=== PATIENT | female | born 1985 | race Caucasian/White ===

== ENCOUNTER 2016-06-02 15:20 | Inpatient (IN) | payer OTHER ==
[2016-06-02 17:11] VITALS: BMI 35.8
--- NOTE | 2016-06-02 19:25 | HP ---
COWS - Scale Resting Pulse: 1= [place] 81-100 Sweatin= Chills/Flushing Restless Observation: 3= Extraneous Movement Pupil Size: 1= Pupils >than Normal Bone or Joint Aches: 2= Severe Diffuse Aches Runny Nose/ Eye Tearin= Nasal Congestion GI Upset > 30mins: 2= Nausea/Diarrhea Tremor Observation: 2= Slight Tremor Visible Yawning Observation: 2= >3x During Session Anxiety or Irritability: 2=Irritable/Anxious Goose Flesh Skin: 0=Smooth Skin COWS Score: 17 Admission ROS S - [facility] Chief Complaint: WITHDRAWAL SX Allergies/Adverse Reactions: Allergies Allergy/AdvReac Type Severity Reaction Status Date / Time No Known Allergies Allergy Verified 06/02/16 17:48 History of Present Illness: 30 YEARS OLD FEMALE WITH LONG HISTORY OF OPIATE, NICOTINE DEPENDENCE, DENIES MEDICAL ISSUE HAS DEPRESSION IS ADMITTED TO DETOX Exam Limitations: No Limitations - Ebola screening Have you traveled outside of the country in the last 21 days: No Have you had contact with anyone from an Ebola affected area: No Have you been sick,other than usual withdrawal symptoms: No Do you have a fever: No - Review of Systems Constitutional: Chills, Changes in sleep, Weight Stable EENT: reports: No Symptoms Reported Cardiac: reports: No Symptoms Reported GI: reports: Nausea, Poor Fluid Intake, Vomiting, Indigestion, Abdominal cramping : reports: No Symptoms Reported Musculoskeletal: reports: Back Pain, Joint Pain, Muscle Pain, Neck Pain Integumentary: reports: Change in Color (RIGHT HAND) Neuro: reports: Tremors Endocrine: reports: No Symptoms Reported Hematology: reports: No Symptoms Reported Psychiatric: reports: Judgement Intact, Orientated x3, Depressed Other Systems: Reviewed and Negative Patient History - Patient Medical History Hx Anemia: No Hx Asthma: No Hx Chronic Obstructive Pulmonary Disease (COPD): No Hx Cancer: No Hx Cardiac Disorders: No Hx Congestive Heart Failure: No Hx Hypertension: No Hx Hypercholesterolemia: Yes Hx Pacemaker: No HX Cerebrovascular Accident: No Hx Seizures: No Hx Dementia: No Hx Diabetes: No Hx Gastrointestinal Disorders: No Hx Liver Disease: No Hx Genitourinary Disorders: No Hx Sexually Transmitted Disorders: No Hx Renal Disease (ESRD): No Hx Thyroid Disease: No Hx Human Immunodeficiency Virus (HIV): No (negative) Hx Hepatitis C: No Hx Depression: Yes Hx Suicide Attempt: No Hx Bipolar Disorder: No Hx Schizophrenia: No - Patient Surgical History Past Surgical History: No Hx Neurologic Surgery: No Hx Cataract Extraction: No Hx Cardiac Surgery: No Hx Lung Surgery: No Hx Breast Surgery: No Hx Breast Biopsy: No Hx Abdominal Surgery: No Hx Appendectomy: No Hx Cholecystectomy: No Hx Genitourinary Surgery: No Hx Section: No Hx Orthopedic Surgery: No Hx Hysterectomy: No Other Surgical History: FRACTURED RT. ELBOW AND RT. 2 FINGER ON 03/11/2015 SEC. TO FALL - PPD History Previous Implant?: Yes Documented Results: Negative w/proof Implanted On Prior R Admission?: Yes Date: 12/19/15 Results: 0 MM PPD to be Administered?: No - Reproductive History Patient is a Female of Child Bearing Age (11 -55 yrs old): Yes Last Menstrual Period: 05/20/16 Patient : No - Smoking Cessation Smoking history: Current every day smoker Have you smoked in the past 12 months: Yes Aproximately how many cigarettes per day: 10 Cigars Per Day: 0 Hx Chewing Tobacco Use: No Initiated information on smoking cessation: Yes 'Breaking Loose' booklet given: 06/02/16 - Substance & Tx. History Hx Alcohol Use: No Hx Substance Use: Yes Substance Use Type: Marijuana, Opiates Hx Substance Use Treatment: Yes - Substances Abused Heroin Route: Injection Frequency: Daily Amount used: 2-5 BAGS Age of first use: 29 Date of Last Use: 05/31/16 Marijuana/Hashish Route: Smoking Frequency: 3-6 times per week Amount used: 1/2 JOINT Age of first use: 16 Date of Last Use: 06/02/16 Family Disease History - Family Disease History Family Disease History: Heart Disease: Father (gout, marijuana, alcohol, cocaine ), Other: Father, Mother (depression, anxiety) Admission Physical Exam BHS - Vital Signs Vital Signs: Vital Signs - 24 hr 06/02/16 17:08 Temperature 99.5 F Pulse Rate 93 H Respiratory 16 Rate Blood Pressure 120/79 - Physical General Appearance: Yes: Appropriately Dressed, Mild Distress, Moderate Distress , Obese, Tremorous, Irritable, Sweating, Anxious HEENTM: Yes: Hearing grossly Normal, Normal ENT Inspection, Normocephalic, Normal Voice Respiratory: Yes: Chest Non-Tender, Lungs Clear, Normal Breath Sounds, No Respiratory Distress, No Accessory Muscle Use Neck: Yes: Supple, Trachea in good position Breast: Yes: Breasts Symetrical Cardiology: Yes: Regular Rhythm, Regular Rate, S1, S2 Abdominal: Yes: Non Tender, Soft, Increased Bowel Sounds Genitourinary: Yes: Within Normal Limits Back: Yes: Normal Inspection Musculoskeletal: Yes: full range of Motion, Gait Steady, Back pain, Muscle Pain Extremities: Yes: Normal Range of Motion, Non-Tender, Tremors, Other (HANDS IV OPIATE) Neurological: Yes: Fully Oriented, Alert, Motor Strength 5/5, Normal Response, Depressed Affect Integumentary: Yes: Warm, Moist, Track [place] Lymphatic: Yes: Within Normal Limits - Diagnostic (1) Depression Current Visit: Yes Status: Suspected Qualifiers: Depression Type: dysthymia Qualified Code(s): F34.1 - Dysthymic disorder (2) GERD (gastroesophageal reflux disease) Current Visit: Yes Status: Acute Qualifiers: Esophagitis presence: without esophagitis Qualified Code(s): K21.9 - Gastro-esophageal reflux disease without esophagitis (3) Nicotine dependence Current Visit: Yes Status: Acute Qualifiers: Nicotine product type: cigarettes Substance use status: in withdrawal Qualified Code(s): F17.213 - Nicotine dependence, cigarettes, with withdrawal (4) Opioid dependence with withdrawal Current Visit: Yes Status: Acute (5) Chronic back pain Current Visit: Yes Status: Chronic Qualifiers: Back pain location: low back pain Back pain laterality: midline Sciatica presence: without sciatica Qualified Code(s): M54.5 - Low back pain; G89.29 - Other chronic pain Cleared for Admission [facility] - Detox or Rehab [facility] Level of Care: Medically Managed Detox Regimen/Protocol: Methadone [facility] Breath Alcohol Content Breath Alcohol Content: 0 Urine Pregancy Test - Result Urine Test Results: Negative- NO Line Present Urine Drug Screen - Results Drug Screen Negative: No Urine Drug Screen Results: THC-Marijuana, OPI-Opiates, TCA-Tricyclic Antidepress , OXY-Oxycodone
[2016-06-02] MEDS ORDERED: P-EPHED 60MG/TRIPROLIDI 2.5MG TABLET PO PRN (19:27)
[2016-06-02] MEDS ORDERED: guaiFENesin/D-METHORPHAN HB 10 ML UNIT-DOSE CUPS PO PRN (19:27)
[2016-06-02] MEDS ORDERED: MAG HYDROX/AL HYDROX/SIMETH 30 ML UNIT-DOSE CUP PO PRN (19:27)
[2016-06-02] MEDS ORDERED: MAGNESIUM HYDROX 2400MG/30ML ORAL SUSPENSION 30 ML CUP PO PRN (19:27)
[2016-06-02] MEDS ORDERED: METHADONE HCL 10 MG TABLET (FOR DETOX USE ONLY) PO ONE ×2 (19:27→23:00)
[2016-06-02] MEDS ORDERED: diphenhydrAMINE HCL 50 MG CAPSULE PO PRN (19:27)
[2016-06-02] MEDS ORDERED: MENTHOL/PHENOL 1 EACH UD MM PRN (19:27)
[2016-06-02] MEDS ORDERED: MAGNESIUM CITRATE 300 ML BOTTLE PO PRN (19:27)
[2016-06-02] MEDS ORDERED: NICOTINE POLACRILEX 2 MG GUM BC PRN (19:27)
[2016-06-02] MEDS ORDERED: LOPERAMIDE HCL 2 MG CAPSULE PO PRN (19:27)
[2016-06-02] MEDS: diazePAM 5 MG TABLET PO PRN (20:36)
[2016-06-02] MEDS: RANITIDINE HCL 150 MG TABLET (FP) PO SCH (22:27)
[2016-06-02] MEDS: THIAMINE HCL 100 MG TABLET (FP) PO SCH (22:27)
[2016-06-02] MEDS: CYCLOBENZAPRINE HCL 10 MG TABLET (FP) PO PRN (22:28)
[2016-06-02 23:16] LABS: URINE APPEARANCE CLEAR; URINE BILIRUBIN NEGATIVE (NEGATIVE); URINE BLOOD NEGATIVE (NEGATIVE); URINE COLOR LTYELLOW; URINE GLUCOSE (UA) NEGATIVE (NEGATIVE); URINE KETONE NEGATIVE (NEGATIVE); URINE LEUK ESTERASE NEGATIVE (NEGATIVE); URINE NITRITE NEGATIVE (NEGATIVE); URINE PROTEIN NEGATIVE (NEGATIVE); URINE UROBILINOGEN NEGATIVE E.U./dl (0.2-1.0)
[2016-06-02] MEDS: cloNIDine HCL 0.1 MG TABLET PO PRN (23:38)
[2016-06-02] MEDS: ACETAMINOPHEN 325 MG TABLET (FP) PO PRN (23:38)
[2016-06-03] MEDS: CYCLOBENZAPRINE HCL 10 MG TABLET (FP) PO PRN ×2 (07:04→22:52)
[2016-06-03] MEDS: diazePAM 5 MG TABLET PO PRN ×3 (07:04→16:46)
--- NOTE | 2016-06-03 08:38 | CONSULT ---
[facility] Psychiatric Consult - Data Date of interview: 06/03/16 Admission source: [facility] Identifying data: This is 30 years old female with psychiatric hospitalization history intoxicated with: Opioids, Cannabus, Xanax and Nicotine Substance Abuse History: - Smoking Cessation. Smoking history: Current every day smoker. Have you smoked in the past 12 months: Yes. Aproximately how many cigarettes per day: 10. Cigars Per Day: 0. Hx Chewing Tobacco Use: No. Initiated information on smoking cessation: Yes. 'Breaking Loose' booklet given : 06/02/16. - Substance & Tx. History. Hx Alcohol Use: No. Hx Substance Use: Yes. Substance Use Type: Marijuana, Opiates. Hx Substance Use Treatment: Yes. - Substances Abused. Heroin. Route: Injection. Frequency: Daily. Amount used: 2-5 BAGS. Age of first use: 29. Date of Last Use: 05/31/16. Marijuana/Hashish. Route: Smoking. Frequency: 3-6 times per week. Amount used : 1/2 JOINT. Age of first use: 16. Date of Last Use: 06/02/16 Medical History: GERD, LBP, Cellulitis history Psychiatric History: Patient reports to carry Bipolar disorder, MDD with most recent psychiatric hospitalization opn 2014 at [facility] due to depressive condition, denies suicidal history, reports currently stable on: Zoloft 200mg po qhs. Seroquel 400mg po qhs Physical/Sexual Abuse/Trauma History: Denies, unclear Additional Comment: Zoloft 200mg po qhs. Seroquel 400mg po qhs Mental Status Exam - Mental Status Exam Alert and Oriented to: Person Cognitive Function: Fair Patient Appearance: Unkempt Mood: Sad Affect: Mood Congruent Patient Behavior: Cooperative Speech Pattern: Appropriate Voice Loudness: Mildly Soft/Quiet Thought Process: Circumstantial, Goal Oriented Thought Disorder: Being Controlled Hallucinations: Denies Suicidal Ideation: Denies Homicidal Ideation: Denies Insight/Judgement: Fair Sleep: Difficulty falling asleep Appetite: Fair Muscle strength/Tone: Normal Gait/Station: Shuffling Additional Comments: Zoloft 200mg po qhs. Seroquel 400mg po qhs Psychiatric Findings - Problem List ([place] 1, 2,3) (1) Nicotine dependence Current Visit: Yes Status: Acute Qualifiers: Nicotine product type: cigarettes Substance use status: in withdrawal Qualified Code(s): F17.213 - Nicotine dependence, cigarettes, with withdrawal (2) Opioid dependence with withdrawal Current Visit: Yes Status: Acute (3) Depression Current Visit: Yes Status: Suspected Qualifiers: Depression Type: dysthymia Qualified Code(s): F34.1 - Dysthymic disorder (4) Bipolar I disorder Current Visit: No Status: Acute (5) Psychoactive substance-induced mood disorder Current Visit: No Status: Acute Qualifiers: Causal substance: opioid-induced Qualified Code(s): F11.94 - Opioid use, unspecified with opioid-induced mood disorder (6) Benzodiazepine dependence Current Visit: No Status: Chronic (7) MDD (major depressive disorder), recurrent episode, moderate Current Visit: No Status: Chronic (8) Personality disorder, unspecified Current Visit: No Status: Chronic (9) Substance induced mood disorder Current Visit: No Status: Chronic - Initial Treatment Plan Initial Treatment Plan: Zoloft 200mg po qhs. Seroquel 400mg po qhs
[2016-06-03 09:56] LABS: MCH 30.2 pg (25.7-33.7); MCHC 33.8 g/dl (32.0-36.0); MEAN CELL VOLUME 89.4 fl (80-96); MEAN PLT VOLUME 8.9 fl (7.5-11.1); PLATELET COUNT 163 K/MM3 (134-434); WHITE BLOOD COUNT 6.9 K/mm3 (4.0-10.0)
[2016-06-03] MEDS ORDERED: METHADONE HCL 10 MG TABLET (FOR DETOX USE ONLY) PO ONE (10:00)
[2016-06-03 10:17] LABS: ALBUMIN 3.6 g/dl (3.4-5.0); ANION GAP 8 (8-16); CALCIUM 8.5 mg/dL (8.5-10.1); CO2 28 mmol/L (21-32); CREATININE 0.9 mg/dL (0.55-1.02); GLUCOSE,RANDOM 87 mg/dL (74-106); SGOT/AST 18 U/L (15-37); SGPT/ALT 35 U/L (12-78)
[2016-06-03 10:19] LABS: ALK PHOS 75 U/L (45-117); BILIRUBIN,TOTAL 0.4 mg/dL (0.2-1.0); TOT PROT 6.8 g/dl (6.4-8.2)
[2016-06-03] MEDS: PRENATAL VITAMINS W/ FOLIC ACID TABLET (FP) PO SCH (10:23)
[2016-06-03] MEDS: NICOTINE 14 MG/24 HOURS TOPICAL PATCH TD SCH (10:24)
[2016-06-03] MEDS: cloNIDine HCL 0.1 MG TABLET PO PRN (10:24)
[2016-06-03] MEDS: RANITIDINE HCL 150 MG TABLET (FP) PO SCH ×2 (10:24→22:51)
--- NOTE | 2016-06-03 10:45 | PN ---
BHS COWS - Scale Resting Pulse: 1= [place] 81-100 Sweatin=Flushed/Facial Moisture Restless Observation: 1= Difficult to Sit Still Pupil Size: 0= Normal to Room Light Bone or Joint Aches: 2= Severe Diffuse Aches Runny Nose/ Eye Tearin= Nasal Congestion GI Upset > 30mins: 2= Nausea/Diarrhea Tremor Observation of Outstretched Hands: 2= Slight Tremor Visible Yawning Observation: 2= >3x During Session Anxiety or Irritability: 2=Irritable/Anxious Goose Flesh Skin: 0=Smooth Skin COWS Score: 15 BHS Progress Note (SOAP) Subjective: shakes sweats interrupted sleep body aches Objective: 06/03/16 10:42 Vital Signs Temperature 98.2 F 06/03/16 09:44 Pulse Rate 74 06/03/16 09:44 Respiratory Rate 20 06/03/16 09:44 Blood Pressure 139/60 06/03/16 09:44 O2 Sat by Pulse Oximetry (%) Laboratory Tests 06/02/16 06/03/16 06/03/16 19:50 07:20 07:20 WBC 6.9 RBC 4.79 Hgb 14.5 Hct 42.8 MCV 89.4 MCHC 33.8 RDW 13.0 Plt Count 163 MPV 8.9 Sodium 142 Potassium 4.1 D Chloride 106 Carbon Dioxide 28 Anion Gap 8 BUN 19 H D Creatinine 0.9 Creat Clearance w eGFR > 60 Random Glucose 87 Calcium 8.5 Total Bilirubin 0.4 AST 18 D ALT 35 D Alkaline Phosphatase 75 D Total Protein 6.8 Albumin 3.6 Urine Color Ltyellow Urine Appearance Clear Urine pH 7.0 D Ur Specific [place] 1.017 Urine Protein Negative Urine Glucose (UA) Negative Urine Ketones Negative Urine Blood Negative Urine Nitrite Negative Urine Bilirubin Negative Urine Urobilinogen Negative Ur Leukocyte Esterase Negative awake/alert ambulating no acute distress Assessment: 06/03/16 10:45 withdrawal sx Plan: continue detox increase fluids lidocaine patch motrin 800mg prn
[2016-06-03] MEDS ORDERED: LIDOCAINE 5% TOPICAL PATCH TP ONE (11:16)
[2016-06-03 12:11] LABS: HIV 1 & 2 AB NEGATIVE; HIV 1 AGp24 NEGATIVE
--- NOTE | 2016-06-03 15:04 | EKG ---
Test Reason : Blood Pressure : / mmHG Vent. Rate : 073 BPM Atrial Rate : 073 BPM P-R Int : 138 ms QRS Dur : 084 ms QT Int : 426 ms P-R-T Axes : 032 009 030 degrees QTc Int : 469 ms NORMAL SINUS RHYTHM POSSIBLE LEFT ATRIAL ENLARGEMENT BORDERLINE ECG NO PREVIOUS ECGS AVAILABLE Confirmed by JOYCELYN CLARK, STEPHANIE ([id number]) on 06/03/2016 3:04:29 PM Referred By: Confirmed By:STEPHANIE HIRSCH MD
[2016-06-03] MEDS: QUEtiapine FUMARATE 400 MG TABLET PO SCH (22:51)
[2016-06-03] MEDS: THIAMINE HCL 100 MG TABLET (FP) PO SCH (22:51)
[2016-06-03] MEDS: SERTRALINE HCL 50 MG TABLET (FP) PO SCH (22:51)
[2016-06-04] MEDS: diazePAM 5 MG TABLET PO PRN ×3 (08:35→17:44)
--- NOTE | 2016-06-04 09:30 | PN ---
BHS COWS - Scale Resting Pulse: 0= [place] 80 or Below Sweatin=Flushed/Facial Moisture Restless Observation: 3= Extraneous Movement Pupil Size: 2= Moderately Dilated Bone or Joint Aches: 2= Severe Diffuse Aches Runny Nose/ Eye Tearin= Runny Nose/Eyes GI Upset > 30mins: 2= Nausea/Diarrhea Tremor Observation of Outstretched Hands: 2= Slight Tremor Visible Yawning Observation: 1= 1-2x During Session Anxiety or Irritability: 2=Irritable/Anxious Goose Flesh Skin: 0=Smooth Skin COWS Score: 18 BHS Progress Note (SOAP) Subjective: ALERT,IRRITABLE,ANXIOUS,INTERRUPTED SLEEP,PAIN IN THE BODY AND BACK Objective: 06/04/16 09:29 Vital Signs Temperature 98 F 06/04/16 06:33 Pulse Rate 82 06/04/16 06:33 Respiratory Rate 18 06/04/16 06:33 Blood Pressure 136/84 06/04/16 06:33 O2 Sat by Pulse Oximetry (%) Laboratory Last Values WBC 6.9 K/mm3 (4.0-10.0) 06/03/16 07:20 RBC 4.79 M/mm3 (3.60-5.2) 06/03/16 07:20 Hgb 14.5 GM/dL (10.7-15.3) 06/03/16 07:20 Hct 42.8 % (32.4-45.2) 06/03/16 07:20 MCV 89.4 fl (80-96) 06/03/16 07:20 MCHC 33.8 g/dl (32.0-36.0) 06/03/16 07:20 RDW 13.0 % (11.6-15.6) 06/03/16 07:20 Plt Count 163 K/MM3 (134-434) 06/03/16 07:20 MPV 8.9 fl (7.5-11.1) 06/03/16 07:20 Sodium 142 mmol/L (136-145) 06/03/16 07:20 Potassium 4.1 mmol/L (3.5-5.1) D 06/03/16 07:20 Chloride 106 mmol/L (98-107) 06/03/16 07:20 Carbon Dioxide 28 mmol/L (21-32) 06/03/16 07:20 Anion Gap 8 (8-16) 06/03/16 07:20 BUN 19 mg/dL (7-18) H D 06/03/16 07:20 Creatinine 0.9 mg/dL (0.55-1.02) 06/03/16 07:20 Creat Clearance w eGFR > 60 (>60) 06/03/16 07:20 Random Glucose 87 mg/dL (74-106) 06/03/16 07:20 Calcium 8.5 mg/dL (8.5-10.1) 06/03/16 07:20 Total Bilirubin 0.4 mg/dL (0.2-1.0) 06/03/16 07:20 AST 18 U/L (15-37) D 06/03/16 07:20 ALT 35 U/L (12-78) D 06/03/16 07:20 Alkaline Phosphatase 75 U/L (45-117) D 06/03/16 07:20 Total Protein 6.8 g/dl (6.4-8.2) 06/03/16 07:20 Albumin 3.6 g/dl (3.4-5.0) 06/03/16 07:20 Urine Color Ltyellow 06/02/16 19:50 Urine Appearance Clear 06/02/16 19:50 Urine pH 7.0 (5.0-8.0) D 06/02/16 19:50 Ur Specific [place] 1.017 (1.001-1.035) 06/02/16 19:50 Urine Protein Negative (NEGATIVE) 06/02/16 19:50 Urine Glucose (UA) Negative (NEGATIVE) 06/02/16 19:50 Urine Ketones Negative (NEGATIVE) 06/02/16 19:50 Urine Blood Negative (NEGATIVE) 06/02/16 19:50 Urine Nitrite Negative (NEGATIVE) 06/02/16 19:50 Urine Bilirubin Negative (NEGATIVE) 06/02/16 19:50 Urine Urobilinogen Negative E.U./dl (0.2-1.0) 06/02/16 19:50 Ur Leukocyte Esterase Negative (NEGATIVE) 06/02/16 19:50 RPR Titer Nonreactive (NONREACTIVE) 06/03/16 07:20 Hepatitis C Antibody <0.1 s/co ratio (0.0-0.9) 06/03/16 07:20 HIV 1&2 Antibody Screen Negative 06/03/16 07:20 HIV P24 Antigen Negative 06/03/16 07:20 Assessment: 06/04/16 09:30 WITHDRAWAL SYMPTOM Plan: CONTINUE DETOX
[2016-06-04] MEDS ORDERED: METHADONE HCL 5 MG TABLET (FOR DETOX USE ONLY) PO ONE (10:00)
[2016-06-04] MEDS: LIDOCAINE 5% TOPICAL PATCH TP SCH (10:23)
[2016-06-04] MEDS: NICOTINE 14 MG/24 HOURS TOPICAL PATCH TD SCH (10:24)
[2016-06-04] MEDS: PRENATAL VITAMINS W/ FOLIC ACID TABLET (FP) PO SCH (10:26)
[2016-06-04] MEDS: RANITIDINE HCL 150 MG TABLET (FP) PO SCH ×2 (10:27→22:40)
[2016-06-04] MEDS: ACETAMINOPHEN 325 MG TABLET (FP) PO PRN (10:28)
[2016-06-04] MEDS: CYCLOBENZAPRINE HCL 10 MG TABLET (FP) PO PRN ×2 (10:30→18:53)
[2016-06-04] MEDS: QUEtiapine FUMARATE 400 MG TABLET PO SCH (22:40)
[2016-06-04] MEDS: THIAMINE HCL 100 MG TABLET (FP) PO SCH (22:40)
[2016-06-04] MEDS: SERTRALINE HCL 50 MG TABLET (FP) PO SCH (22:40)
[2016-06-05] MEDS: diazePAM 5 MG TABLET PO PRN ×3 (07:12→18:12)
[2016-06-05] MEDS ORDERED: METHADONE HCL 5 MG TABLET (FOR DETOX USE ONLY) PO ONE (10:00)
[2016-06-05] MEDS: PRENATAL VITAMINS W/ FOLIC ACID TABLET (FP) PO SCH (10:33)
[2016-06-05] MEDS: LIDOCAINE 5% TOPICAL PATCH TP SCH (10:33)
[2016-06-05] MEDS: RANITIDINE HCL 150 MG TABLET (FP) PO SCH ×2 (10:33→22:20)
[2016-06-05] MEDS: NICOTINE 14 MG/24 HOURS TOPICAL PATCH TD SCH (10:36)
[2016-06-05] MEDS: CYCLOBENZAPRINE HCL 10 MG TABLET (FP) PO PRN (10:36)
--- NOTE | 2016-06-05 11:35 | PN ---
BHS Progress Note (SOAP) Subjective: restlessness Objective: 06/05/16 11:33 withdrawal sx Vital Signs - 8 hr 06/05/16 06/05/16 06:00 11:07 Temperature 97.1 F L 97.9 F Pulse Rate 61 83 Respiratory 18 18 Rate Blood Pressure 95/55 101/62 Laboratory Last Values WBC 6.9 K/mm3 (4.0-10.0) 06/03/16 07:20 RBC 4.79 M/mm3 (3.60-5.2) 06/03/16 07:20 Hgb 14.5 GM/dL (10.7-15.3) 06/03/16 07:20 Hct 42.8 % (32.4-45.2) 06/03/16 07:20 MCV 89.4 fl (80-96) 06/03/16 07:20 MCHC 33.8 g/dl (32.0-36.0) 06/03/16 07:20 RDW 13.0 % (11.6-15.6) 06/03/16 07:20 Plt Count 163 K/MM3 (134-434) 06/03/16 07:20 MPV 8.9 fl (7.5-11.1) 06/03/16 07:20 Sodium 142 mmol/L (136-145) 06/03/16 07:20 Potassium 4.1 mmol/L (3.5-5.1) D 06/03/16 07:20 Chloride 106 mmol/L (98-107) 06/03/16 07:20 Carbon Dioxide 28 mmol/L (21-32) 06/03/16 07:20 Anion Gap 8 (8-16) 06/03/16 07:20 BUN 19 mg/dL (7-18) H D 06/03/16 07:20 Creatinine 0.9 mg/dL (0.55-1.02) 06/03/16 07:20 Creat Clearance w eGFR > 60 (>60) 06/03/16 07:20 Random Glucose 87 mg/dL (74-106) 06/03/16 07:20 Calcium 8.5 mg/dL (8.5-10.1) 06/03/16 07:20 Total Bilirubin 0.4 mg/dL (0.2-1.0) 06/03/16 07:20 AST 18 U/L (15-37) D 06/03/16 07:20 ALT 35 U/L (12-78) D 06/03/16 07:20 Alkaline Phosphatase 75 U/L (45-117) D 06/03/16 07:20 Total Protein 6.8 g/dl (6.4-8.2) 06/03/16 07:20 Albumin 3.6 g/dl (3.4-5.0) 06/03/16 07:20 Urine Color Ltyellow 06/02/16 19:50 Urine Appearance Clear 06/02/16 19:50 Urine pH 7.0 (5.0-8.0) D 06/02/16 19:50 Ur Specific [place] 1.017 (1.001-1.035) 06/02/16 19:50 Urine Protein Negative (NEGATIVE) 06/02/16 19:50 Urine Glucose (UA) Negative (NEGATIVE) 06/02/16 19:50 Urine Ketones Negative (NEGATIVE) 06/02/16 19:50 Urine Blood Negative (NEGATIVE) 06/02/16 19:50 Urine Nitrite Negative (NEGATIVE) 06/02/16 19:50 Urine Bilirubin Negative (NEGATIVE) 06/02/16 19:50 Urine Urobilinogen Negative E.U./dl (0.2-1.0) 06/02/16 19:50 Ur Leukocyte Esterase Negative (NEGATIVE) 06/02/16 19:50 RPR Titer Nonreactive (NONREACTIVE) 06/03/16 07:20 Hepatitis C Antibody <0.1 s/co ratio (0.0-0.9) 06/03/16 07:20 HIV 1&2 Antibody Screen Negative 06/03/16 07:20 HIV P24 Antigen Negative 06/03/16 07:20 labs noted Assessment: 06/05/16 11:34 withdrawal sx Plan: continue detox
[2016-06-05] MEDS: QUEtiapine FUMARATE 400 MG TABLET PO SCH (22:20)
[2016-06-05] MEDS: SERTRALINE HCL 50 MG TABLET (FP) PO SCH (22:20)
[2016-06-05] MEDS: THIAMINE HCL 100 MG TABLET (FP) PO SCH (22:21)
[2016-06-06] MEDS: ACETAMINOPHEN 325 MG TABLET (FP) PO PRN (08:51)
[2016-06-06] MEDS ORDERED: METHADONE HCL 10 MG TABLET (FOR DETOX USE ONLY) PO ONE (10:00)
[2016-06-06 10:09] VITALS: BP 128/79; PULSE 95; TEMP 97.9
[2016-06-06] MEDS: PRENATAL VITAMINS W/ FOLIC ACID TABLET (FP) PO SCH (10:21)
[2016-06-06] MEDS: RANITIDINE HCL 150 MG TABLET (FP) PO SCH (10:21)
[2016-06-06] MEDS: LIDOCAINE 5% TOPICAL PATCH TP SCH (10:22)
[2016-06-06] MEDS: NICOTINE 14 MG/24 HOURS TOPICAL PATCH TD SCH (10:22)
--- NOTE | 2016-06-06 10:44 | DS ---
[facility] Detox Discharge Summary Admission Date: 06/02/16 Discharge Date: 06/06/16 - History Present History: Opioid Dependence, Sedative Dependence Pertinent Past History: Hyperlipdemia - Physical Exam Results Vital Signs: Vital Signs Temperature 97.9 F 06/06/16 10:00 Pulse Rate 95 H 06/06/16 10:00 Respiratory Rate 18 06/06/16 10:00 Blood Pressure 128/79 06/06/16 10:00 O2 Sat by Pulse Oximetry (%) Laboratory Last Values WBC 6.9 K/mm3 (4.0-10.0) 06/03/16 07:20 RBC 4.79 M/mm3 (3.60-5.2) 06/03/16 07:20 Hgb 14.5 GM/dL (10.7-15.3) 06/03/16 07:20 Hct 42.8 % (32.4-45.2) 06/03/16 07:20 MCV 89.4 fl (80-96) 06/03/16 07:20 MCHC 33.8 g/dl (32.0-36.0) 06/03/16 07:20 RDW 13.0 % (11.6-15.6) 06/03/16 07:20 Plt Count 163 K/MM3 (134-434) 06/03/16 07:20 MPV 8.9 fl (7.5-11.1) 06/03/16 07:20 Sodium 142 mmol/L (136-145) 06/03/16 07:20 Potassium 4.1 mmol/L (3.5-5.1) D 06/03/16 07:20 Chloride 106 mmol/L (98-107) 06/03/16 07:20 Carbon Dioxide 28 mmol/L (21-32) 06/03/16 07:20 Anion Gap 8 (8-16) 06/03/16 07:20 BUN 19 mg/dL (7-18) H D 06/03/16 07:20 Creatinine 0.9 mg/dL (0.55-1.02) 06/03/16 07:20 Creat Clearance w eGFR > 60 (>60) 06/03/16 07:20 Random Glucose 87 mg/dL (74-106) 06/03/16 07:20 Calcium 8.5 mg/dL (8.5-10.1) 06/03/16 07:20 Total Bilirubin 0.4 mg/dL (0.2-1.0) 06/03/16 07:20 AST 18 U/L (15-37) D 06/03/16 07:20 ALT 35 U/L (12-78) D 06/03/16 07:20 Alkaline Phosphatase 75 U/L (45-117) D 06/03/16 07:20 Total Protein 6.8 g/dl (6.4-8.2) 06/03/16 07:20 Albumin 3.6 g/dl (3.4-5.0) 06/03/16 07:20 Urine Color Ltyellow 06/02/16 19:50 Urine Appearance Clear 06/02/16 19:50 Urine pH 7.0 (5.0-8.0) D 06/02/16 19:50 Ur Specific [place] 1.017 (1.001-1.035) 06/02/16 19:50 Urine Protein Negative (NEGATIVE) 06/02/16 19:50 Urine Glucose (UA) Negative (NEGATIVE) 06/02/16 19:50 Urine Ketones Negative (NEGATIVE) 06/02/16 19:50 Urine Blood Negative (NEGATIVE) 06/02/16 19:50 Urine Nitrite Negative (NEGATIVE) 06/02/16 19:50 Urine Bilirubin Negative (NEGATIVE) 06/02/16 19:50 Urine Urobilinogen Negative E.U./dl (0.2-1.0) 06/02/16 19:50 Ur Leukocyte Esterase Negative (NEGATIVE) 06/02/16 19:50 RPR Titer Nonreactive (NONREACTIVE) 06/03/16 07:20 Hepatitis C Antibody <0.1 s/co ratio (0.0-0.9) 06/03/16 07:20 HIV 1&2 Antibody Screen Negative 06/03/16 07:20 HIV P24 Antigen Negative 06/03/16 07:20 Labs noted Pertinent Admission Physical Exam Findings: Withdrawal Symptoms - Treatment Hospital Course: Detox Protocol Followed, Detoxed Safely, Responded well, Discharged Condition Good - Medication Discharge Medications: Ambulatory Orders Sertraline HCl [Zoloft] 200 mg PO DAILY #60 tablet 01/05/16 Clonazepam [Klonopin] 1 mg PO BID 06/02/16 Quetiapine Fumarate [Seroquel -] 400 mg PO HS 06/02/16 Quetiapine Fumarate [Seroquel -] 400 mg PO HS #30 tab 06/03/16 Sertraline HCl [Zoloft -] 200 mg PO HS #30 tablet 06/03/16 - Diagnosis (1) GERD (gastroesophageal reflux disease) Current Visit: Yes Status: Acute Qualifiers: Esophagitis presence: without esophagitis Qualified Code(s): K21.9 - Gastro-esophageal reflux disease without esophagitis (2) Nicotine dependence Current Visit: Yes Status: Acute Qualifiers: Nicotine product type: cigarettes Substance use status: in withdrawal Qualified Code(s): F17.213 - Nicotine dependence, cigarettes, with withdrawal (3) Opioid dependence with withdrawal Current Visit: Yes Status: Acute (4) Depression Current Visit: Yes Status: Suspected Qualifiers: Depression Type: dysthymia Qualified Code(s): F34.1 - Dysthymic disorder (5) Bipolar I disorder Current Visit: No Status: Acute (6) Psychoactive substance-induced mood disorder Current Visit: No Status: Acute Qualifiers: Causal substance: opioid-induced Qualified Code(s): F11.94 - Opioid use, unspecified with opioid-induced mood disorder (7) Benzodiazepine dependence Current Visit: No Status: Chronic (8) Cannabis dependence Current Visit: No Status: Chronic (9) MDD (major depressive disorder), recurrent episode, moderate Current Visit: No Status: Chronic (10) Opiate dependence Current Visit: No Status: Chronic Qualifiers: Substance use status: uncomplicated Qualified Code(s): F11.20 - Opioid dependence, uncomplicated (11) Personality disorder, unspecified Current Visit: No Status: Chronic (12) Substance induced mood disorder Current Visit: No Status: Chronic (13) Anxiety Current Visit: No Status: Suspected - AMA Did Patient Leave Against Medical Advice: No (Patient is medcially stable, has appointment with [facility] on 06/07 at 9 am)
[2016-06-07] MEDS ORDERED: METHADONE HCL 5 MG TABLET (FOR DETOX USE ONLY) PO ONE (06:00)
== END 2016-06-06 13:05 | disposition home or self-care (01) | DRG 773 ==
LOC: YASAS 15:20 → Y6N 19:14
PROVIDERS: ADMIT Internal Medicine Addiction Medicine; ATTEND Internal Medicine Addiction Medicine
PROC: HZ2ZZZZ Detoxification Services for Substance Abuse Treatment (ICD-10-PCS; principal; 2016-06-06)
DX: F11.23 Opioid dependence with withdrawal (principal); F13.20 Sedative, hypnotic or anxiolytic dependence, uncomplicated; F12.20 Cannabis dependence, uncomplicated; F17.213 Nicotine dependence, cigarettes, with withdrawal; F11.94 Opioid use, unspecified with opioid-induced mood disorder; F60.9 Personality disorder, unspecified; F34.1 Dysthymic disorder; F31.89 Other bipolar disorder; M54.5 Low back pain; G89.29 Other chronic pain
CPT/HCPCS: 36415; 80053; 81003; 85027; 86593; 87389; 93005; 93010

== ENCOUNTER 2016-11-27 11:59 | Inpatient (IN) | payer OTHER ==
[2016-11-27 12:14] VITALS: BMI 32.0
--- NOTE | 2016-11-27 17:50 | HP ---
CIWA Score - CIWA Score Nausea/Vomitin Muscle Tremors: 3 Anxiety: 3 Agitation: 3 Paroxysmal Sweats: 2 Orientation: 0-Oriented Tacttile Disturbances: 2-Mild Itch/Numbness/Burn Auditory Disturbances: 2-Mild Harshness/Frighten Visual Disturbances: 2-Mild Sensitivity Headache: 2-Mild CIWA-Ar Total Score: 22 Admission ROS BHS - HPI Chief Complaint: i need help to stop using klonopin,sent in by my doctor for detox Allergies/Adverse Reactions: Allergies Allergy/AdvReac Type Severity Reaction Status Date / Time No Known Allergies Allergy Verified 06/02/16 17:48 History of Present Illness: this 31 years 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,seking detox,sent in by her pmd for detox, - Ebola screening Have you traveled outside of the country in the last 21 days: No Have you had contact with anyone from an Ebola affected area: No Have you been sick,other than usual withdrawal symptoms: No Do you have a fever: No Patient History - Patient Medical History Hx Anemia: No Hx Asthma: No Hx Chronic Obstructive Pulmonary Disease (COPD): No Hx Cancer: No Hx Cardiac Disorders: No Hx Congestive Heart Failure: No Hx Hypertension: No Hx Hypercholesterolemia: Yes Hx Pacemaker: No HX Cerebrovascular Accident: No Hx Seizures: No Hx Dementia: No Hx Diabetes: No Hx Gastrointestinal Disorders: No Hx Liver Disease: No Hx Genitourinary Disorders: No Hx Sexually Transmitted Disorders: No Hx Renal Disease (ESRD): No Hx Thyroid Disease: No Hx Human Immunodeficiency Virus (HIV): No (negative) Hx Hepatitis C: No Hx Depression: Yes Hx Suicide Attempt: No Hx Bipolar Disorder: No Hx Schizophrenia: No - Patient Surgical History Past Surgical History: No Hx Neurologic Surgery: No Hx Cataract Extraction: No Hx Cardiac Surgery: No Hx Lung Surgery: No Hx Breast Surgery: No Hx Breast Biopsy: No Hx Abdominal Surgery: No Hx Appendectomy: No Hx Cholecystectomy: No Hx Genitourinary Surgery: No Hx Section: No Hx Orthopedic Surgery: No Hx Hysterectomy: No Other Surgical History: FRACTURED RT. ELBOW AND RT. 2 FINGER ON 03/11/2015 SEC. TO FALL Anesthesia Reaction: No - PPD History Date: 12/19/15 Results: 0 MM - Reproductive History Last Menstrual Period: 05/20/16 - Smoking Cessation Smoking history: Current every day smoker Have you smoked in the past 12 months: Yes Aproximately how many cigarettes per day: 10 Cigars Per Day: 0 Hx Chewing Tobacco Use: No Family Disease History - Family Disease History Family Disease History: Heart Disease: Father (gout, marijuana, alcohol, cocaine ), Other: Father, Mother (depression, anxiety) Admission Physical Exam BHS - Vital Signs Vital Signs: Vital Signs - 24 hr 11/27/16 12:11 Temperature 98.8 F Pulse Rate 90 Respiratory 18 Rate Blood Pressure 118/83 BHS Breath Alcohol Content Breath Alcohol Content: 0 Urine Pregancy Test - Result Urine Test Results: Negative- NO Line Present Urine Drug Screen - Results Drug Screen Negative: No Urine Drug Screen Results: OPI-Opiates, TCA-Tricyclic Antidepress
--- NOTE | 2016-11-27 18:05 | HP ---
CIWA Score - CIWA Score Nausea/Vomitin Muscle Tremors: 3 Anxiety: 3 Agitation: 3 Paroxysmal Sweats: 2 Orientation: 0-Oriented Tacttile Disturbances: 2-Mild Itch/Numbness/Burn Auditory Disturbances: 2-Mild Harshness/Frighten Visual Disturbances: 2-Mild Sensitivity Headache: 2-Mild CIWA-Ar Total Score: 22 Admission ROS BHS - HPI Chief Complaint: i need help to stop using klonopin,referred by [place] pmd for inpatient detox Allergies/Adverse Reactions: Allergies Allergy/AdvReac Type Severity Reaction Status Date / Time No Known Allergies Allergy Verified 06/02/16 17:48 History of Present Illness: this 31 years 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,seeking detox,refer by her pmd ,last treatment 06/25 [facility] for opiate, stated h=she did not use opiate any more,denied alcohol history of anxiety and depression nicotine dependence no significant period of sobriety Exam Limitations: No Limitations - Ebola screening Have you traveled outside of the country in the last 21 days: No Have you had contact with anyone from an Ebola affected area: No Have you been sick,other than usual withdrawal symptoms: No Do you have a fever: No - Review of Systems Constitutional: Loss of Appetite, Malaise, Night Sweats, Changes in sleep, Weakness EENT: reports: Nose Congestion Respiratory: reports: No Symptoms reported Cardiac: reports: No Symptoms Reported GI: reports: Nausea, Vomiting, Abdominal cramping : reports: No Symptoms Reported Musculoskeletal: reports: Back Pain, Muscle Pain Integumentary: reports: Dryness Neuro: reports: Headache, Tremors Endocrine: reports: No Symptoms Reported Hematology: reports: No Symptoms Reported Psychiatric: reports: Judgement Intact, Mood/Affect Appropiate, Orientated x3, Anxious, Depressed Patient History - Patient Medical History Hx Anemia: No Hx Asthma: No Hx Chronic Obstructive Pulmonary Disease (COPD): No Hx Cancer: No Hx Cardiac Disorders: No Hx Congestive Heart Failure: No Hx Hypertension: No Hx Hypercholesterolemia: Yes (no med) Hx Pacemaker: No HX Cerebrovascular Accident: No Hx Seizures: No Hx Dementia: No Hx Diabetes: No Hx Gastrointestinal Disorders: No Hx Liver Disease: No Hx Genitourinary Disorders: No Hx Sexually Transmitted Disorders: No Hx Renal Disease (ESRD): No Hx Thyroid Disease: No Hx Human Immunodeficiency Virus (HIV): No (negative last 06/25) Hx Hepatitis C: No Hx Depression: Yes (anxiety) Hx Suicide Attempt: No Hx Bipolar Disorder: No Hx Schizophrenia: No Other Medical History: no suicidal,no homicidal - Patient Surgical History Past Surgical History: No Hx Neurologic Surgery: No Hx Cataract Extraction: No Hx Cardiac Surgery: No Hx Lung Surgery: No Hx Breast Surgery: No Hx Breast Biopsy: No Hx Abdominal Surgery: No Hx Appendectomy: No Hx Cholecystectomy: No Hx Genitourinary Surgery: No Hx Section: No Hx Orthopedic Surgery: No Hx Hysterectomy: No Other Surgical History: FRACTURED RT. ELBOW AND RT. 2 FINGER ON 03/11/2015 SEC. TO FALL Anesthesia Reaction: No - PPD History Previous Implant?: Yes Documented Results: Negative w/proof Date: 12/19/15 Results: 0 MM PPD to be Administered?: No - Reproductive History Patient is a Female of Child Bearing Age (11 -55 yrs old): Yes Last Menstrual Period: 11/19/16 Patient : No - Smoking Cessation Smoking history: Current every day smoker Have you smoked in the past 12 months: Yes Aproximately how many cigarettes per day: 10 Cigars Per Day: 0 Hx Chewing Tobacco Use: No Initiated information on smoking cessation: Yes 'Breaking Loose' booklet given: 11/27/16 - Substance & Tx. History Hx Alcohol Use: No Hx Substance Use: Yes Substance Use Type: Tranquilizers Hx Substance Use Treatment: Yes ([facility] 06/25) - Substances Abused Benzodiazepine (Klonopin) Route: Oral Frequency: Daily Amount used: 6 mgs Age of first use: 24 Date of Last Use: 11/27/16 Family Disease History - Family Disease History Family Disease History: Heart Disease: Father (gout, marijuana, alcohol, cocaine ), Other: Father, Mother (depression, anxiety) Admission Physical Exam [facility] - Vital Signs Vital Signs: Vital Signs - 24 hr 11/27/16 12:11 Temperature 98.8 F Pulse Rate 90 Respiratory 18 Rate Blood Pressure 118/83 - Physical General Appearance: Yes: Moderate Distress, Tremorous, Irritable, Sweating, Anxious HEENTM: Yes: Normal ENT Inspection, MARKO, Pharynx Normal Respiratory: Yes: Lungs Clear, Normal Breath Sounds, No Respiratory Distress Neck: Yes: Within Normal Limits, Supple, Trachea in good position Breast: Yes: Breast Exam Deferred Cardiology: Yes: Within Normal Limits, Regular Rhythm, Regular Rate, S1, S2 Abdominal: Yes: Within Normal Limits, Normal Bowel Sounds, Non Tender, Soft Genitourinary: Yes: Within Normal Limits (history of chronic cystitis) Back: Yes: Normal Inspection, Muscle Spasm Musculoskeletal: Yes: Gait Steady, Back pain Extremities: Yes: Normal Range of Motion, Tremors Neurological: Yes: state editor II-XII NML intact, Fully Oriented, Alert, Motor Strength 5/5 Integumentary: Yes: Dry Lymphatic: Yes: Within Normal Limits - Diagnostic (1) Uncomplicated sedative, hypnotic or anxiolytic withdrawal Current Visit: Yes Status: Acute (2) Anxiety and depression Current Visit: Yes Status: Acute (3) Nicotine dependence Current Visit: No Status: Acute Qualifiers: Nicotine product type: cigarettes Substance use status: in withdrawal Qualified Code(s): F17.213 - Nicotine dependence, cigarettes, with withdrawal Cleared for Admission BHS - Detox or Rehab Detox Regimen/Protocol: Valium BHS Breath Alcohol Content Breath Alcohol Content: 0 Urine Pregancy Test - Result Urine Test Results: Negative- NO Line Present Urine Drug Screen - Test Device Lot Number: [id number] Expiration Date: 09/08/18 - Control Is Test Valid: Yes - Results Drug Screen Negative: No Urine Drug Screen Results: OPI-Opiates, BZO-Benzodiazepines, TCA-Tricyclic Antidepress
[2016-11-27] MEDS ORDERED: diazePAM 5 MG TABLET PO ONE (18:21)
[2016-11-27] MEDS ORDERED: hydrOXYzine PAMOATE 50 MG CAPSULE (FP) PO PRN (18:21)
[2016-11-27] MEDS ORDERED: MAGNESIUM CITRATE 300 ML BOTTLE PO PRN (18:21)
[2016-11-27] MEDS ORDERED: MENTHOL/PHENOL 1 EACH UD MM PRN (18:21)
[2016-11-27] MEDS ORDERED: MAG HYDROX/AL HYDROX/SIMETH 30 ML UNIT-DOSE CUP PO PRN (18:21)
[2016-11-27] MEDS ORDERED: MAGNESIUM HYDROX 2400MG/30ML ORAL SUSPENSION 30 ML CUP PO PRN (18:21)
[2016-11-27] MEDS ORDERED: IBUPROFEN 400 MG TABLET (FP) PO PRN (18:21)
[2016-11-27] MEDS ORDERED: P-EPHED 60MG/TRIPROLIDI 2.5MG TABLET PO PRN (18:21)
[2016-11-27] MEDS ORDERED: LOPERAMIDE HCL 2 MG CAPSULE PO PRN (18:21)
[2016-11-27] MEDS ORDERED: guaiFENesin/D-METHORPHAN HB 10 ML UNIT-DOSE CUPS PO PRN (18:21)
[2016-11-27] MEDS: THIAMINE HCL 100 MG TABLET (FP) PO SCH (22:45)
[2016-11-27] MEDS: diphenhydrAMINE HCL 50 MG CAPSULE PO PRN (22:45)
[2016-11-27] MEDS: diazePAM 5 MG TABLET PO SCH (22:45)
[2016-11-28] MEDS: diazePAM 5 MG TABLET PO SCH ×3 (05:52→22:33)
[2016-11-28] MEDS: ACETAMINOPHEN 325 MG TABLET (FP) PO PRN (09:19)
[2016-11-28 10:27] LABS: MCH 31.3 pg (25.7-33.7); MCHC 35.4 g/dl (32.0-36.0); MEAN CELL VOLUME 88.4 fl (80-96); MEAN PLT VOLUME 9.1 fl (7.5-11.1); PLATELET COUNT 153 K/MM3 (134-434); RDW 13.4 % (11.6-15.6); WHITE BLOOD COUNT 5.8 K/mm3 (4.0-10.0)
[2016-11-28] MEDS: PRENATAL VITAMINS W/ FOLIC ACID TABLET (FP) PO SCH (10:34)
[2016-11-28] MEDS: diazePAM 5 MG TABLET PO PRN ×2 (10:34→17:04)
[2016-11-28] MEDS: CYCLOBENZAPRINE HCL 10 MG TABLET (FP) PO PRN ×2 (10:34→22:33)
[2016-11-28 11:09] LABS: ALBUMIN 3.6 g/dl (3.4-5.0); ALK PHOS 73 U/L (45-117); ANION GAP 6 (8-16); BILIRUBIN,TOTAL 0.3 mg/dL (0.2-1.0); CALCIUM 8.4 mg/dL (8.5-10.1); CO2 30 mmol/L (21-32); CREATININE 0.8 mg/dL (0.55-1.02); GLUCOSE,RANDOM 88 mg/dL (74-106); SGOT/AST 19 U/L (15-37); SGPT/ALT 28 U/L (12-78); TOT PROT 6.3 g/dl (6.4-8.2)
--- NOTE | 2016-11-28 12:53 | EKG ---
Test Reason : Blood Pressure : / mmHG Vent. Rate : 091 BPM Atrial Rate : 091 BPM P-R Int : 134 ms QRS Dur : 084 ms QT Int : 356 ms P-R-T Axes : 029 -03 029 degrees QTc Int : 437 ms NORMAL SINUS RHYTHM CANNOT RULE OUT ANTERIOR INFARCT , AGE UNDETERMINED ABNORMAL ECG WHEN COMPARED WITH ECG OF 02-JUN-2016 20:56, NO SIGNIFICANT CHANGE WAS FOUND Confirmed by ELA RODRIGUEZ MD ([id number]) on 11/28/2016 12:53:13 PM Referred By: Confirmed By:ELA RODRIGUEZ MD
--- NOTE | 2016-11-28 15:33 | PN ---
[facility] CIWA - CIWA Score Nausea/Vomitin Muscle Tremors: 3 Anxiety: 3 Agitation: 2 Paroxysmal Sweats: 1-Minimal Palms Moist Orientation: 0-Oriented Tacttile Disturbances: 1-Very Mild Itch/Numbness Auditory Disturbances: 1-Very Mild Visual Disturbances: 1-Very Mild Sensitivity Headache: 2-Mild CIWA-Ar Total Score: 17 BHS Progress Note (SOAP) Subjective: ALERT,IRRITABLE,ANXIOUS,INTERRUPTED SLEEP,TREMOR,PAIN IN THE BACK Objective: 11/28/16 15:30 Vital Signs Temperature 98.1 F 11/28/16 10:59 Pulse Rate 77 11/28/16 10:59 Respiratory Rate 20 11/28/16 10:59 Blood Pressure 123/75 11/28/16 10:59 O2 Sat by Pulse Oximetry (%) EKG NSR NO CHEST PAIN,NO SOB,NO DIZZINESS Laboratory Last Values WBC 5.8 K/mm3 (4.0-10.0) 11/28/16 07:45 RBC 4.50 M/mm3 (3.60-5.2) 11/28/16 07:45 Hgb 14.1 GM/dL (10.7-15.3) 11/28/16 07:45 Hct 39.8 % (32.4-45.2) 11/28/16 07:45 MCV 88.4 fl (80-96) 11/28/16 07:45 MCH 31.3 pg (25.7-33.7) 11/28/16 07:45 MCHC 35.4 g/dl (32.0-36.0) 11/28/16 07:45 RDW 13.4 % (11.6-15.6) 11/28/16 07:45 Plt Count 153 K/MM3 (134-434) 11/28/16 07:45 MPV 9.1 fl (7.5-11.1) 11/28/16 07:45 Sodium 140 mmol/L (136-145) 11/28/16 07:45 Potassium 3.7 mmol/L (3.5-5.1) 11/28/16 07:45 Chloride 104 mmol/L (98-107) 11/28/16 07:45 Carbon Dioxide 30 mmol/L (21-32) 11/28/16 07:45 Anion Gap 6 (8-16) L 11/28/16 07:45 BUN 12 mg/dL (7-18) D 11/28/16 07:45 Creatinine 0.8 mg/dL (0.55-1.02) 11/28/16 07:45 Creat Clearance w eGFR > 60 (>60) 11/28/16 07:45 Random Glucose 88 mg/dL (74-106) 11/28/16 07:45 Calcium 8.4 mg/dL (8.5-10.1) L 11/28/16 07:45 Total Bilirubin 0.3 mg/dL (0.2-1.0) D 11/28/16 07:45 AST 19 U/L (15-37) 11/28/16 07:45 ALT 28 U/L (12-78) 11/28/16 07:45 Alkaline Phosphatase 73 U/L (45-117) 11/28/16 07:45 Total Protein 6.3 g/dl (6.4-8.2) L 11/28/16 07:45 Albumin 3.6 g/dl (3.4-5.0) 11/28/16 07:45 RPR Titer Nonreactive (NONREACTIVE) 11/28/16 07:45 Assessment: 11/28/16 15:32 WITHDRAWAL SYMPTOM Plan: CONTINUE DETOX
[2016-11-28] MEDS: THIAMINE HCL 100 MG TABLET (FP) PO SCH (22:33)
[2016-11-28] MEDS: diphenhydrAMINE HCL 50 MG CAPSULE PO PRN (22:34)
[2016-11-29] MEDS: CYCLOBENZAPRINE HCL 10 MG TABLET (FP) PO PRN ×3 (07:55→22:27)
[2016-11-29] MEDS: ACETAMINOPHEN 325 MG TABLET (FP) PO PRN (07:55)
[2016-11-29] MEDS: diazePAM 5 MG TABLET PO PRN ×3 (07:55→17:02)
--- NOTE | 2016-11-29 08:56 | CONSULT ---
[facility] Psychiatric Consult - Data Date of interview: 11/29/16 Admission source: [facility] Identifying data: This is 31 years old female with history of MDD, Bipolar Disorder, Psychiatric hospitalization history intoxicated with: Opioids, Xanax, Nicotine Substance Abuse History: - Smoking Cessation. Smoking history: Current every day smoker. Have you smoked in the past 12 months: Yes. Aproximately how many cigarettes per day: 10. Cigars Per Day: 0. Hx Chewing Tobacco Use: No. Initiated information on smoking cessation: Yes. 'Breaking Loose' booklet given : 11/27/16. - Substance & Tx. History. Hx Alcohol Use: No. Hx Substance Use: Yes. Substance Use Type: Tranquilizers. Hx Substance Use Treatment: Yes ([facility] 06/25). - Substances Abused. Benzodiazepine (Klonopin). Route: Oral. Frequency: Daily. Amount used: 6 mgs. Age of first use: 24. Date of Last Use : 11/27/16 Medical History: Patient reporrs history of Ceellulitis, GERD Psychiatric History: Patient reports history of Bipolar Disorder and MDD, denies suicidal history, reprots most recent psychiatric admission on: at [facility] due to depressivse episide, reportws currently taking: Seroquel 400mg po qhs. Zoloft 200mg poqd Physical/Sexual Abuse/Trauma History: Denies, unclear Additional Comment: Seroquel 400mg po qhs. Zoloft 200mg poqd Mental Status Exam - Mental Status Exam Alert and Oriented to: Person Cognitive Function: Fair Patient Appearance: Unkempt Mood: Sad Affect: Flat Patient Behavior: Sedated Speech Pattern: Delayed Voice Loudness: Mildly Soft/Quiet Thought Process: Circumstantial Thought Disorder: Being Controlled Hallucinations: Denies Suicidal Ideation: Denies Homicidal Ideation: Denies Insight/Judgement: Fair Sleep: Difficulty falling asleep Appetite: Weight gain Muscle strength/Tone: Mild Hypertonicity Gait/Station: Shuffling Additional Comments: Seroquel 400mg po qhs. Zoloft 200mg poqd Psychiatric Findings - Problem List ([place] 1, 2,3) (1) Anxiety and depression Current Visit: Yes Status: Acute (2) Uncomplicated sedative, hypnotic or anxiolytic withdrawal Current Visit: Yes Status: Acute (3) Bipolar I disorder Current Visit: No Status: Acute (4) Nicotine dependence Current Visit: No Status: Acute Qualifiers: Nicotine product type: cigarettes Substance use status: in withdrawal Qualified Code(s): F17.213 - Nicotine dependence, cigarettes, with withdrawal (5) Opioid dependence with withdrawal Current Visit: No Status: Acute (6) Psychoactive substance-induced mood disorder Current Visit: No Status: Acute Qualifiers: Causal substance: opioid-induced Qualified Code(s): F11.94 - Opioid use, unspecified with opioid-induced mood disorder (7) Benzodiazepine dependence Current Visit: No Status: Chronic (8) Cannabis dependence Current Visit: No Status: Chronic (9) MDD (major depressive disorder), recurrent episode, moderate Current Visit: No Status: Chronic (10) Substance induced mood disorder Current Visit: No Status: Chronic (11) Bipolar disorder Current Visit: Yes Status: Suspected - Initial Treatment Plan Initial Treatment Plan: Seroquel 400mg po qhs. Zoloft 200mg poqd
[2016-11-29] MEDS: PRENATAL VITAMINS W/ FOLIC ACID TABLET (FP) PO SCH (10:15)
[2016-11-29] MEDS: diazePAM 5 MG TABLET PO SCH ×2 (10:15→22:27)
[2016-11-29] MEDS: SERTRALINE HCL 50 MG TABLET (FP) PO SCH (10:15)
--- NOTE | 2016-11-29 10:22 | PN ---
[facility] CIWA - CIWA Score Nausea/Vomitin-No Nausea/No Vomiting Muscle Tremors: 3 Anxiety: 3 Agitation: 3 Paroxysmal Sweats: 3 Orientation: 0-Oriented Tacttile Disturbances: 0-None Auditory Disturbances: 0-None Visual Disturbances: 0-None Headache: 0-None Present CIWA-Ar Total Score: 12 S Progress Note (SOAP) Subjective: back ache sweats interrupted sleep agitation anxiety Objective: 11/29/16 10:15 Vital Signs Temperature 98.1 F 11/29/16 10:00 Pulse Rate 83 11/29/16 10:00 Respiratory Rate 18 11/29/16 10:00 Blood Pressure 110/73 11/29/16 10:00 O2 Sat by Pulse Oximetry (%) Laboratory Tests 11/28/16 11/28/16 11/28/16 07:45 07:45 07:45 WBC 5.8 RBC 4.50 Hgb 14.1 Hct 39.8 MCV 88.4 MCH 31.3 MCHC 35.4 RDW 13.4 Plt Count 153 MPV 9.1 Sodium 140 Potassium 3.7 Chloride 104 Carbon Dioxide 30 Anion Gap 6 L BUN 12 D Creatinine 0.8 Creat Clearance w eGFR > 60 Random Glucose 88 Calcium 8.4 L Total Bilirubin 0.3 D AST 19 ALT 28 Alkaline Phosphatase 73 Total Protein 6.3 L Albumin 3.6 RPR Titer Nonreactive labs pending awake/alert ambulating no acute distress Assessment: 11/29/16 10:22 withdrawal sx Plan: continue detox increase fluids labs pending lidocaine patch motrin 600mg prn
[2016-11-29] MEDS ORDERED: LIDOCAINE 5% TOPICAL PATCH TP SCH (10:45)
[2016-11-29] MEDS: LIDOCAINE 5% TOPICAL PATCH TP SCH (12:22)
[2016-11-29] MEDS: IBUPROFEN 600 MG TABLET (FP) PO PRN ×2 (15:01→22:27)
[2016-11-29] MEDS: diphenhydrAMINE HCL 50 MG CAPSULE PO PRN (22:26)
[2016-11-29] MEDS: QUEtiapine FUMARATE 400 MG TABLET PO SCH (22:27)
[2016-11-29] MEDS: THIAMINE HCL 100 MG TABLET (FP) PO SCH (22:27)
[2016-11-29] MEDS: LIDOCAINE PATCH REMOVAL MC SCH (22:28)
[2016-11-30] MEDS: PRENATAL VITAMINS W/ FOLIC ACID TABLET (FP) PO SCH (10:47)
[2016-11-30] MEDS: SERTRALINE HCL 50 MG TABLET (FP) PO SCH (10:47)
[2016-11-30] MEDS: diazePAM 5 MG TABLET PO SCH ×2 (10:47→22:21)
[2016-11-30] MEDS: IBUPROFEN 600 MG TABLET (FP) PO PRN (10:49)
[2016-11-30] MEDS: LIDOCAINE 5% TOPICAL PATCH TP SCH (10:58)
[2016-11-30] MEDS: CYCLOBENZAPRINE HCL 10 MG TABLET (FP) PO PRN ×3 (11:27→22:20)
[2016-11-30 12:09] LABS: URINE APPEARANCE SLCLOUDY; URINE BILIRUBIN NEGATIVE (NEGATIVE); URINE BLOOD NEGATIVE (NEGATIVE); URINE COLOR YELLOW; URINE GLUCOSE (UA) NEGATIVE (NEGATIVE); URINE KETONE NEGATIVE (NEGATIVE); URINE LEUK ESTERASE NEGATIVE (NEGATIVE); URINE NITRITE NEGATIVE (NEGATIVE); URINE PROTEIN NEGATIVE (NEGATIVE); URINE UROBILINOGEN NEGATIVE mg/dL (0.2-1.0)
--- NOTE | 2016-11-30 12:53 | PN ---
BHS Progress Note (SOAP) Subjective: Sweating,interrupted sleep,restless Objective: 11/30/16 12:52 Vital Signs - 8 hr 11/30/16 11/30/16 06:00 09:43 Temperature 98.1 F 97.9 F Pulse Rate 48 L 92 H Respiratory 16 16 Rate Blood Pressure 129/74 108/68 Laboratory Last Values WBC 5.8 K/mm3 (4.0-10.0) 11/28/16 07:45 RBC 4.50 M/mm3 (3.60-5.2) 11/28/16 07:45 Hgb 14.1 GM/dL (10.7-15.3) 11/28/16 07:45 Hct 39.8 % (32.4-45.2) 11/28/16 07:45 MCV 88.4 fl (80-96) 11/28/16 07:45 MCH 31.3 pg (25.7-33.7) 11/28/16 07:45 MCHC 35.4 g/dl (32.0-36.0) 11/28/16 07:45 RDW 13.4 % (11.6-15.6) 11/28/16 07:45 Plt Count 153 K/MM3 (134-434) 11/28/16 07:45 MPV 9.1 fl (7.5-11.1) 11/28/16 07:45 Sodium 140 mmol/L (136-145) 11/28/16 07:45 Potassium 3.7 mmol/L (3.5-5.1) 11/28/16 07:45 Chloride 104 mmol/L (98-107) 11/28/16 07:45 Carbon Dioxide 30 mmol/L (21-32) 11/28/16 07:45 Anion Gap 6 (8-16) L 11/28/16 07:45 BUN 12 mg/dL (7-18) D 11/28/16 07:45 Creatinine 0.8 mg/dL (0.55-1.02) 11/28/16 07:45 Creat Clearance w eGFR > 60 (>60) 11/28/16 07:45 Random Glucose 88 mg/dL (74-106) 11/28/16 07:45 Calcium 8.4 mg/dL (8.5-10.1) L 11/28/16 07:45 Total Bilirubin 0.3 mg/dL (0.2-1.0) D 11/28/16 07:45 AST 19 U/L (15-37) 11/28/16 07:45 ALT 28 U/L (12-78) 11/28/16 07:45 Alkaline Phosphatase 73 U/L (45-117) 11/28/16 07:45 Total Protein 6.3 g/dl (6.4-8.2) L 11/28/16 07:45 Albumin 3.6 g/dl (3.4-5.0) 11/28/16 07:45 Urine Color Yellow 11/30/16 09:30 Urine Appearance Slcloudy 11/30/16 09:30 Urine pH 6.0 (5.0-8.0) 11/30/16 09:30 Urine Protein Negative (NEGATIVE) 11/30/16 09:30 Urine Glucose (UA) Negative (NEGATIVE) 11/30/16 09:30 Urine Ketones Negative (NEGATIVE) 11/30/16 09:30 Urine Blood Negative (NEGATIVE) 11/30/16 09:30 Urine Nitrite Negative (NEGATIVE) 11/30/16 09:30 Urine Bilirubin Negative (NEGATIVE) 11/30/16 09:30 Urine Urobilinogen Negative mg/dL (0.2-1.0) 11/30/16 09:30 Ur Leukocyte Esterase Negative (NEGATIVE) 11/30/16 09:30 RPR Titer Nonreactive (NONREACTIVE) 11/28/16 07:45 labs noted Assessment: 11/30/16 12:52 Withdrawal sx. Plan: Continue detox
[2016-11-30] MEDS: diazePAM 5 MG TABLET PO PRN ×2 (14:36→18:15)
[2016-11-30 21:35] VITALS: BP 116/71; PULSE 72; TEMP 98.2
[2016-11-30] MEDS: diphenhydrAMINE HCL 50 MG CAPSULE PO PRN (22:20)
[2016-11-30] MEDS: LIDOCAINE PATCH REMOVAL MC SCH (22:21)
[2016-11-30] MEDS: QUEtiapine FUMARATE 400 MG TABLET PO SCH (22:21)
[2016-11-30] MEDS: THIAMINE HCL 100 MG TABLET (FP) PO SCH (22:21)
--- NOTE | 2016-12-01 09:01 | DS ---
[facility] Detox Discharge Summary Admission Date: 11/27/16 Discharge Date: 12/01/16 - History Present History: Sedative Dependence - Physical Exam Results Vital Signs: Vital Signs Temperature 98.2 F 11/30/16 21:34 Pulse Rate 72 11/30/16 21:34 Respiratory Rate 18 12/01/16 00:30 Blood Pressure 116/71 11/30/16 21:34 O2 Sat by Pulse Oximetry (%) - Treatment Hospital Course: Detox Protocol Followed, Detoxed Safely, Responded well, Discharged Condition Good - Medication Discharge Medications: Ambulatory Orders Quetiapine Fumarate [Seroquel -] 400 mg PO HS 11/27/16 Sertraline HCl [Zoloft] 200 mg PO DAILY 11/27/16 Quetiapine Fumarate [Seroquel -] 400 mg PO HS #30 tab 11/29/16 Sertraline HCl [Zoloft -] 200 mg PO DAILY #30 tablet 11/29/16 - Diagnosis (1) Anxiety and depression Current Visit: Yes Status: Chronic (2) Uncomplicated sedative, hypnotic or anxiolytic withdrawal Current Visit: Yes Status: Chronic (3) Nicotine dependence Current Visit: Yes Status: Chronic Qualifiers: Nicotine product type: cigarettes Substance use status: uncomplicated Qualified Code(s): F17.210 - Nicotine dependence, cigarettes, uncomplicated - AMA Did Patient Leave Against Medical Advice: No
[2016-12-01] MEDS: PRENATAL VITAMINS W/ FOLIC ACID TABLET (FP) PO SCH (09:06)
[2016-12-01] MEDS: SERTRALINE HCL 50 MG TABLET (FP) PO SCH (09:07)
[2016-12-01] MEDS: LIDOCAINE 5% TOPICAL PATCH TP SCH (09:08)
[2016-12-01] MEDS ORDERED: diazePAM 5 MG TABLET PO SCH (10:00)
== END 2016-12-01 09:25 | disposition home or self-care (01) | DRG 773 ==
LOC: YASAS 11:59 → Y6N 17:23
PROVIDERS: ADMIT Internal Medicine; ATTEND Internal Medicine
PROC: HZ2ZZZZ Detoxification Services for Substance Abuse Treatment (ICD-10-PCS; principal; 2016-12-01)
DX: F11.23 Opioid dependence with withdrawal (principal); F13.230 Sedative, hypnotic or anxiolytic dependence with withdrawal, uncomplicated; F12.20 Cannabis dependence, uncomplicated; F17.210 Nicotine dependence, cigarettes, uncomplicated; F41.8 Other specified anxiety disorders; F31.89 Other bipolar disorder; E78.00 Pure hypercholesterolemia, unspecified
CPT/HCPCS: 36415; 80053; 81003; 85027; 86593; 93005; 93010

== ENCOUNTER 2017-05-04 08:49 | Inpatient (IN) | payer OTHER ==
[2017-05-04 10:53] VITALS: BMI 33.3
--- NOTE | 2017-05-04 14:38 | HP ---
COWS - Scale Resting Pulse: 0= [place] 80 or Below Sweatin= Chills/Flushing Restless Observation: 3= Extraneous Movement Pupil Size: 0= Normal to Room Light Bone or Joint Aches: 4=Acute Joint/Muscle Pain Runny Nose/ Eye Tearin= Nasal Congestion GI Upset > 30mins: 1= Stomach Cramp Tremor Observation: 1= Tremor [place], Not Seen Yawning Observation: 1= 1-2x During Session Anxiety or Irritability: 2=Irritable/Anxious Goose Flesh Skin: 0=Smooth Skin COWS Score: 14 Admission ROS S - HPI Chief Complaint: WITHDRAWAL SX FROM PERCOCETS AND KLONOPIN Allergies/Adverse Reactions: Allergies Allergy/AdvReac Type Severity Reaction Status Date / Time No Known Allergies Allergy Verified 05/04/17 11:23 History of Present Illness: 31 Y/O H/FEMALE WITH A HX OF PERCOCET,KLONOPIN AND MARIJUANA DEPENDENCE SEEKING DETOX [place]. Exam Limitations: No Limitations - Ebola screening Have you traveled outside of the country in the last 21 days: No (N) Have you had contact with anyone from an Ebola affected area: No Have you been sick,other than usual withdrawal symptoms: No Do you have a fever: No - Review of Systems Constitutional: Chills, Loss of Appetite, Night Sweats, Changes in sleep EENT: reports: Blurred Vision (WEARS GLASSES), Tearing, Nose Congestion Respiratory: reports: No Symptoms reported Cardiac: reports: Lightheadedness GI: reports: Constipated, Diarrhea, Nausea, Poor Appetite, Poor Fluid Intake, Vomiting : reports: No Symptoms Reported Musculoskeletal: reports: Back Pain, Joint Pain, Muscle Pain Integumentary: reports: No Symptoms Reported Neuro: reports: Headache, Dizziness Endocrine: reports: No Symptoms Reported Hematology: reports: No Symptoms Reported Psychiatric: reports: Orientated x3, Anxious, Depressed Other Systems: Reviewed and Negative Patient History - Patient Medical History Hx Anemia: No Hx Asthma: No Hx Chronic Obstructive Pulmonary Disease (COPD): No Hx Cancer: No Hx Cardiac Disorders: No Hx Congestive Heart Failure: No Hx Hypertension: No Hx Hypercholesterolemia: Yes (no med) Hx Pacemaker: No HX Cerebrovascular Accident: No Hx Seizures: No Hx Dementia: No Hx Diabetes: No Hx Gastrointestinal Disorders: Yes (Hx of GERD) Hx Liver Disease: No Hx Genitourinary Disorders: No Hx Sexually Transmitted Disorders: Yes (HX HPV WITH LEEP/COLPOSCOPY PROCEDURES) Hx Renal Disease (ESRD): No Hx Thyroid Disease: No Hx Human Immunodeficiency Virus (HIV): No (negative last 06/25) Hx Hepatitis C: No Hx Depression: Yes Hx Suicide Attempt: No (DENIES) Hx Bipolar Disorder: No Hx Schizophrenia: No - Patient Surgical History Past Surgical History: Yes Hx Neurologic Surgery: No Hx Cataract Extraction: No Hx Cardiac Surgery: No Hx Lung Surgery: No Hx Breast Surgery: No Hx Breast Biopsy: No Hx Abdominal Surgery: No Hx Appendectomy: No Hx Cholecystectomy: No Hx Genitourinary Surgery: Yes (COLPOSCOPY/LEEP 2005) Hx Section: No Hx Orthopedic Surgery: No Hx Hysterectomy: No Other Surgical History: FRACTURED RT. ELBOW AND RT. 2 FINGER ON 03/11/2015 SEC. TO FALL Anesthesia Reaction: No - PPD History Previous Implant?: Yes Documented Results: Negative w/proof Implanted On Prior [facility] Admission?: Yes Date: 12/19/15 Results: 0 MM PPD to be Administered?: Yes - Reproductive History Patient is a Female of Child Bearing Age (11 -55 yrs old): Yes Last Menstrual Period: 05/01/17 Patient : No - Smoking Cessation Smoking history: Current every day smoker Have you smoked in the past 12 months: Yes Aproximately how many cigarettes per day: 10 Cigars Per Day: 0 Hx Chewing Tobacco Use: No Initiated information on smoking cessation: Yes 'Breaking Loose' booklet given: 05/04/17 - Substance & Tx. History Hx Alcohol Use: No Hx Substance Use: Yes (PERCOCETS/MARIJUANA) Substance Use Type: Marijuana, Opiates, Tranquilizers (RX KLONOPIN BUT STATES NOT ABUSING IT. NEGATIVE TOXICOLOGY TODAY.) Hx Substance Use Treatment: Yes (CURRENTLY IN [facility]) - Substances Abused Benzodiazepine (Klonopin) Route: Oral Frequency: Daily Amount used: 1-2MG Age of first use: 25 Date of Last Use: 05/04/17 Marijuana/Hashish Route: Smoking Frequency: Daily Amount used: 4-5 JOINTS Age of first use: 18 Date of Last Use: 05/04/17 PERCOCET Route: Oral Frequency: Daily Amount used: 7-10 PILLS (10MG) Age of first use: 23 Date of Last Use: 05/04/17 Family Disease History - Family Disease History Family Disease History: Heart Disease: Father (gout, marijuana, alcohol, cocaine ), Other: Father, Mother (depression, anxiety) Admission Physical Exam [facility] - Vital Signs Vital Signs: Vital Signs - 24 hr 05/04/17 10:44 Temperature 97.1 F L Pulse Rate 76 Respiratory 20 Rate Blood Pressure 122/74 - Physical General Appearance: Yes: Appropriately Dressed, Moderate Distress, Irritable, Anxious, Other (FATIGUE) HEENTM: Yes: EOMI, Normocephalic, MARKO, Pharynx Normal, Nasal Congestion Respiratory: Yes: Chest Non-Tender, Lungs Clear, Normal Breath Sounds, No Respiratory Distress Neck: Yes: Supple, Trachea in good position Breast: Yes: Breast Exam Deferred Cardiology: Yes: Regular Rhythm, Regular Rate, S1, S2 Abdominal: Yes: Normal Bowel Sounds, Non Tender, Soft Genitourinary: Yes: Other (N/C) Back: Yes: Within Normal Limits Musculoskeletal: Yes: full range of Motion, Gait Steady Extremities: Yes: Normal Range of Motion, Non-Tender Neurological: Yes: equipment engineering technician II-XII NML intact, Fully Oriented, Alert, Motor Strength 5/5 Integumentary: Yes: Dry, Warm Lymphatic: Yes: Within Normal Limits - Diagnostic (1) GERD (gastroesophageal reflux disease) Current Visit: Yes Status: Acute Qualifiers: Esophagitis presence: esophagitis presence not specified Qualified Code(s) : K21.9 - Gastro-esophageal reflux disease without esophagitis (2) Opioid dependence with withdrawal Current Visit: Yes Status: Acute (3) Cannabis dependence Current Visit: Yes Status: Acute (4) Nicotine dependence Current Visit: Yes Status: Acute Qualifiers: Nicotine product type: cigarettes Substance use status: in withdrawal Qualified Code(s): F17.213 - Nicotine dependence, cigarettes, with withdrawal Cleared for Admission [facility] - Detox or Rehab [facility] Level of Care: Medically Managed Detox Regimen/Protocol: Methadone [facility] Breath Alcohol Content Breath Alcohol Content: 0 Urine Pregancy Test - Result Urine Test Results: Negative- NO Line Present Urine Drug Screen - Results Drug Screen Negative: No Urine Drug Screen Results: THC-Marijuana, TCA-Tricyclic Antidepress, OXY- Oxycodone
[2017-05-04] MEDS ORDERED: ACETAMINOPHEN 325 MG TABLET (FP) PO PRN (14:59)
[2017-05-04] MEDS ORDERED: LOPERAMIDE HCL 2 MG CAPSULE PO PRN (14:59)
[2017-05-04] MEDS ORDERED: P-EPHED 60MG/TRIPROLIDI 2.5MG TABLET PO PRN (14:59)
[2017-05-04] MEDS ORDERED: guaiFENesin/D-METHORPHAN HB 10 ML UNIT-DOSE CUPS PO PRN (14:59)
[2017-05-04] MEDS ORDERED: MENTHOL/PHENOL 1 EACH UD MM PRN (14:59)
[2017-05-04] MEDS ORDERED: MAGNESIUM HYDROX 2400MG/30ML ORAL SUSPENSION 30 ML CUP PO PRN (14:59)
[2017-05-04] MEDS ORDERED: MAGNESIUM CITRATE 300 ML BOTTLE PO PRN (14:59)
[2017-05-04] MEDS ORDERED: MAG HYDROX/AL HYDROX/SIMETH 30 ML UNIT-DOSE CUP PO PRN (14:59)
[2017-05-04] MEDS ORDERED: NICOTINE POLACRILEX 2 MG GUM BUC PRN (14:59)
[2017-05-04] MEDS ORDERED: METHADONE HCL 10 MG TABLET (FOR DETOX USE ONLY) PO ONE ×2 (15:15→23:00)
[2017-05-04] MEDS: diazePAM 5 MG TABLET PO PRN ×2 (16:05→22:41)
[2017-05-04] MEDS: CYCLOBENZAPRINE HCL 10 MG TABLET (FP) PO PRN ×2 (16:08→22:41)
[2017-05-04] MEDS: NICOTINE 14 MG/24 HOURS TOPICAL PATCH TD SCH (16:08)
[2017-05-04 17:19] LABS: HEMATOCRIT 42.3 % (32.4-45.2); HEMOGLOBIN 14.4 GM/dL (10.7-15.3); MCH 30.4 pg (25.7-33.7); MEAN CELL VOLUME 89.6 fl (80-96); MEAN PLT VOLUME 9.7 fl (7.5-11.1); PLATELET COUNT 196 K/MM3 (134-434); RBC 4.72 M/mm3 (3.60-5.2); RDW 13.7 % (11.6-15.6); WHITE BLOOD COUNT 6.2 K/mm3 (4.0-10.0)
[2017-05-04 17:56] LABS: ALBUMIN 4.1 g/dl (3.4-5.0); ANION GAP 8 (8-16); BILIRUBIN,TOTAL 0.5 mg/dL (0.2-1.0); BLOOD UREA NITROGEN 16 mg/dL (7-18); CALCIUM 8.9 mg/dL (8.5-10.1); CHLORIDE 102 mmol/L (98-107); CO2 31 mmol/L (21-32); CREATININE 0.9 mg/dL (0.55-1.02); GLUCOSE,RANDOM 100 mg/dL (74-106); POTASSIUM 4.6 mmol/L (3.5-5.1); SGOT/AST 23 U/L (15-37); SGPT/ALT 36 U/L (12-78); SODIUM 141 mmol/L (136-145); TOT PROT 7.5 g/dl (6.4-8.2)
[2017-05-04 17:57] LABS: ALK PHOS 77 U/L (45-117)
[2017-05-04 21:33] LABS: URINE APPEARANCE CLEAR; URINE BILIRUBIN NEGATIVE (NEGATIVE); URINE BLOOD 3+ (NEGATIVE); URINE COLOR DKYELLOW; URINE GLUCOSE (UA) NEGATIVE (NEGATIVE); URINE KETONE TRACE (NEGATIVE); URINE LEUK ESTERASE NEGATIVE (NEGATIVE); URINE NITRITE NEGATIVE (NEGATIVE); URINE UROBILINOGEN NEGATIVE mg/dL (0.2-1.0)
[2017-05-04 21:35] LABS: URINE PROTEIN 1+ (NEGATIVE)
[2017-05-04 21:43] LABS: EPI CELLS RARE /HPF (FEW); URINE MUCUS RARE
[2017-05-04] MEDS: IBUPROFEN 400 MG TABLET (FP) PO PRN (22:41)
[2017-05-04] MEDS: THIAMINE HCL 100 MG TABLET (FP) PO SCH (22:41)
[2017-05-05] MEDS: CYCLOBENZAPRINE HCL 10 MG TABLET (FP) PO PRN ×3 (06:07→22:42)
[2017-05-05] MEDS: diazePAM 5 MG TABLET PO PRN ×4 (06:07→22:41)
[2017-05-05] MEDS ORDERED: METHADONE HCL 10 MG TABLET (FOR DETOX USE ONLY) PO ONE (10:00)
--- NOTE | 2017-05-05 10:35 | EKG ---
Test Reason : Blood Pressure : / mmHG Vent. Rate : 053 BPM Atrial Rate : 053 BPM P-R Int : 132 ms QRS Dur : 086 ms QT Int : 460 ms P-R-T Axes : 028 025 029 degrees QTc Int : 431 ms SINUS BRADYCARDIA OTHERWISE NORMAL ECG WHEN COMPARED WITH ECG OF 27-NOV-2016 17:24, VENT. RATE HAS DECREASED BY 38 BPM Confirmed by STEPHANIE HIRSCH MD ([id number]) on 05/05/2017 10:34:58 AM Referred By: Confirmed By:STEPHANIE HIRSCH MD
[2017-05-05] MEDS: ESCITALOPRAM OXALATE 20 MG TABLET (FP) PO SCH (11:15)
[2017-05-05] MEDS: PRENATAL VITAMINS W/ FOLIC ACID TABLET (FP) PO SCH (11:15)
[2017-05-05] MEDS: NICOTINE 14 MG/24 HOURS TOPICAL PATCH TD SCH (11:17)
--- NOTE | 2017-05-05 12:02 | PN ---
BHS COWS - Scale Resting Pulse: 0= [place] 80 or Below Sweatin= Chills/Flushing Restless Observation: 1= Difficult to Sit Still Pupil Size: 0= Normal to Room Light Bone or Joint Aches: 1= Mild Discomfort Runny Nose/ Eye Tearin= Nasal Congestion GI Upset > 30mins: 1= Stomach Cramp Tremor Observation of Outstretched Hands: 1= Tremor [place], Not Seen Yawning Observation: 2= >3x During Session Anxiety or Irritability: 1=Feels Anxious/Irritable Goose Flesh Skin: 0=Smooth Skin COWS Score: 9 BHS Progress Note (SOAP) Subjective: general body ache sweat GI distress Objective: 05/05/17 12:03 Vital Signs Temperature 98.4 F 05/05/17 09:52 Pulse Rate 65 05/05/17 09:52 Respiratory Rate 18 05/05/17 09:52 Blood Pressure 97/61 05/05/17 09:52 O2 Sat by Pulse Oximetry (%) Laboratory Last Values WBC 6.2 K/mm3 (4.0-10.0) 05/04/17 15:00 RBC 4.72 M/mm3 (3.60-5.2) 05/04/17 15:00 Hgb 14.4 GM/dL (10.7-15.3) 05/04/17 15:00 Hct 42.3 % (32.4-45.2) 05/04/17 15:00 MCV 89.6 fl (80-96) 05/04/17 15:00 MCH 30.4 pg (25.7-33.7) 05/04/17 15:00 MCHC 34.0 g/dl (32.0-36.0) 05/04/17 15:00 RDW 13.7 % (11.6-15.6) 05/04/17 15:00 Plt Count 196 K/MM3 (134-434) D 05/04/17 15:00 MPV 9.7 fl (7.5-11.1) 05/04/17 15:00 Sodium 141 mmol/L (136-145) 05/04/17 15:00 Potassium 4.6 mmol/L (3.5-5.1) 05/04/17 15:00 Chloride 102 mmol/L (98-107) 05/04/17 15:00 Carbon Dioxide 31 mmol/L (21-32) 05/04/17 15:00 Anion Gap 8 (8-16) 05/04/17 15:00 BUN 16 mg/dL (7-18) 05/04/17 15:00 Creatinine 0.9 mg/dL (0.55-1.02) 05/04/17 15:00 Creat Clearance w eGFR > 60 (>60) 05/04/17 15:00 Random Glucose 100 mg/dL (74-106) 05/04/17 15:00 Calcium 8.9 mg/dL (8.5-10.1) 05/04/17 15:00 Total Bilirubin 0.5 mg/dL (0.2-1.0) D 05/04/17 15:00 AST 23 U/L (15-37) 05/04/17 15:00 ALT 36 U/L (12-78) 05/04/17 15:00 Alkaline Phosphatase 77 U/L (45-117) 05/04/17 15:00 Total Protein 7.5 g/dl (6.4-8.2) 05/04/17 15:00 Albumin 4.1 g/dl (3.4-5.0) 05/04/17 15:00 Urine Color Dkyellow 05/04/17 20:00 Urine Appearance Clear 05/04/17 20:00 Urine pH 5.0 (5.0-8.0) 05/04/17 20:00 Ur Specific [place] 1.027 (1.001-1.035) 05/04/17 20:00 Urine Protein 1+ (NEGATIVE) H 05/04/17 20:00 Urine Glucose (UA) Negative (NEGATIVE) 05/04/17 20:00 Urine Ketones Trace (NEGATIVE) H 05/04/17 20:00 Urine Blood 3+ (NEGATIVE) H 05/04/17 20:00 Urine Nitrite Negative (NEGATIVE) 05/04/17 20:00 Urine Bilirubin Negative (NEGATIVE) 05/04/17 20:00 Urine Urobilinogen Negative mg/dL (0.2-1.0) 05/04/17 20:00 Ur Leukocyte Esterase Negative (NEGATIVE) 05/04/17 20:00 Urine WBC (Auto) 12 /hpf (3-5) 05/04/17 20:00 Urine RBC (Auto) 110 /hpf (0-3) 05/04/17 20:00 Ur Epithelial Cells Rare /HPF (FEW) 05/04/17 20:00 Urine Mucus Rare 05/04/17 20:00 RPR Titer Nonreactive (NONREACTIVE) 05/04/17 15:00 lab noted Assessment: 05/05/17 12:04 withdrawal sx Plan: continue detox
--- NOTE | 2017-05-05 13:36 | CONSULT ---
[facility] Psychiatric Consult - Data Date of interview: 05/05/17 Admission source: [facility] Identifying data: This is 31 years old female with psychiatric hospitalization history, history of MDD, Bipolar I Disorder, intoxicated with: Klonopin, Opioids, Cannabis and Nicotine Substance Abuse History: - Smoking Cessation. Smoking history: Current every day smoker. Have you smoked in the past 12 months: Yes. Aproximately how many cigarettes per day: 10. Cigars Per Day: 0. Hx Chewing Tobacco Use: No. Initiated information on smoking cessation: Yes. 'Breaking Loose' booklet given : 05/04/17. - Substance & Tx. History. Hx Alcohol Use: No. Hx Substance Use: Yes (PERCOCETS/MARIJUANA). Substance Use Type: Marijuana, Opiates, Tranquilizers (RX KLONOPIN BUT STATES NOT ABUSING IT. NEGATIVE TOXICOLOGY TODAY. ). Hx Substance Use Treatment: Yes (CURRENTLY IN [facility]). - Substances Abused. Benzodiazepine (Klonopin). Route: Oral. Frequency: Daily. Amount used: 1-2MG. Age of first use: 25. Date of Last Use: 05/04/17. Marijuana/Hashish. Route: Smoking. Frequency: Daily. Amount used: 4-5 JOINTS. Age of first use: 18. Date of Last Use: 05/04/17. PERCOCET. Route : Oral. Frequency: Daily. Amount used: 7-10 PILLS (10MG). Age of first use: 23. Date of Last Use: 05/04/17. Family Disease History Medical History: GERD, Psychiatric History: Patient reports anxiety and depression, reports psychiatric admission on 2017 at [facility], reports taking prior to admission: Seroquel 400mg po qhs. Lexapro 20mg po qd. Patient insisit on Seroquel 400mg po qhs inspite of warning to be oversedated. Physical/Sexual Abuse/Trauma History: Denies Additional Comment: Seroquel 400mg po qhs. Lexapro 20mg po qd Mental Status Exam - Mental Status Exam Alert and Oriented to: Person Cognitive Function: Fair Patient Appearance: Unkempt Mood: Apprehensive Affect: Mood Congruent Patient Behavior: Cooperative Speech Pattern: Appropriate Voice Loudness: Normal Thought Process: Goal Oriented Thought Disorder: Being Controlled Hallucinations: Denies Suicidal Ideation: Denies Homicidal Ideation: Denies Insight/Judgement: Fair Appetite: Fair Muscle strength/Tone: Normal Gait/Station: Normal Additional Comments: Seroquel 400mg po qhs. Lexapro 20mg po qd Psychiatric Findings - Problem List ([place] 1, 2,3) (1) Cannabis dependence Current Visit: Yes Status: Acute (2) Nicotine dependence Current Visit: Yes Status: Acute Qualifiers: Nicotine product type: cigarettes Substance use status: in withdrawal Qualified Code(s): F17.213 - Nicotine dependence, cigarettes, with withdrawal (3) Opioid dependence with withdrawal Current Visit: Yes Status: Acute (4) Bipolar I disorder Current Visit: No Status: Acute (5) Psychoactive substance-induced mood disorder Current Visit: No Status: Acute Qualifiers: Causal substance: opioid-induced Qualified Code(s): F11.94 - Opioid use, unspecified with opioid-induced mood disorder (6) Anxiety and depression Current Visit: No Status: Chronic (7) Benzodiazepine dependence Current Visit: No Status: Chronic (8) MDD (major depressive disorder), recurrent episode, moderate Current Visit: No Status: Chronic (9) Opiate dependence Current Visit: No Status: Chronic Qualifiers: Substance use status: uncomplicated Qualified Code(s): F11.20 - Opioid dependence, uncomplicated (10) Personality disorder, unspecified Current Visit: No Status: Chronic (11) Substance induced mood disorder Current Visit: No Status: Chronic (12) Uncomplicated sedative, hypnotic or anxiolytic withdrawal Current Visit: No Status: Chronic - Initial Treatment Plan Initial Treatment Plan: Seroquel 400mg po qhs. Lexapro 20mg po qd
[2017-05-05] MEDS: THIAMINE HCL 100 MG TABLET (FP) PO SCH (22:40)
[2017-05-05] MEDS: IBUPROFEN 400 MG TABLET (FP) PO PRN (22:41)
[2017-05-05] MEDS: QUEtiapine FUMARATE 400 MG TABLET PO SCH (22:41)
[2017-05-06] MEDS: diazePAM 5 MG TABLET PO PRN ×3 (08:45→22:49)
[2017-05-06] MEDS ORDERED: METHADONE HCL 5 MG TABLET (FOR DETOX USE ONLY) PO ONE (10:00)
--- NOTE | 2017-05-06 10:32 | PN ---
BHS COWS - Scale Resting Pulse: 0= [place] 80 or Below Sweatin=Flushed/Facial Moisture Restless Observation: 1= Difficult to Sit Still Pupil Size: 0= Normal to Room Light Bone or Joint Aches: 1= Mild Discomfort Runny Nose/ Eye Tearin= Runny Nose/Eyes GI Upset > 30mins: 1= Stomach Cramp Tremor Observation of Outstretched Hands: 2= Slight Tremor Visible Yawning Observation: 1= 1-2x During Session Anxiety or Irritability: 2=Irritable/Anxious Goose Flesh Skin: 0=Smooth Skin COWS Score: 12 BHS Progress Note (SOAP) Subjective: Anxiety,sweating,nausea,interrupted sleep,restless Objective: 05/06/17 10:30 Vital Signs - 8 hr 05/06/17 05/06/17 05/06/17 03:30 07:43 09:46 Temperature 97.7 F 98.4 F Pulse Rate 56 L 76 Respiratory 18 16 18 Rate Blood Pressure 111/56 119/73 Laboratory Tests 05/04/17 05/04/17 05/04/17 15:00 15:00 15:00 WBC 6.2 RBC 4.72 Hgb 14.4 Hct 42.3 MCV 89.6 MCH 30.4 MCHC 34.0 RDW 13.7 Plt Count 196 D MPV 9.7 Sodium 141 Potassium 4.6 Chloride 102 Carbon Dioxide 31 Anion Gap 8 BUN 16 Creatinine 0.9 Creat Clearance w eGFR > 60 Random Glucose 100 Calcium 8.9 Total Bilirubin 0.5 D AST 23 ALT 36 Alkaline Phosphatase 77 Total Protein 7.5 Albumin 4.1 Urine Color Urine Appearance Urine pH Ur Specific [place] Urine Protein Urine Glucose (UA) Urine Ketones Urine Blood Urine Nitrite Urine Bilirubin Urine Urobilinogen Ur Leukocyte Esterase Urine WBC (Auto) Urine RBC (Auto) Ur Epithelial Cells Urine Mucus RPR Titer Nonreactive 05/04/17 20:00 WBC RBC Hgb Hct MCV MCH MCHC RDW Plt Count MPV Sodium Potassium Chloride Carbon Dioxide Anion Gap BUN Creatinine Creat Clearance w eGFR Random Glucose Calcium Total Bilirubin AST ALT Alkaline Phosphatase Total Protein Albumin Urine Color Dkyellow Urine Appearance Clear Urine pH 5.0 Ur Specific [place] 1.027 Urine Protein 1+ H Urine Glucose (UA) Negative Urine Ketones Trace H Urine Blood 3+ H Urine Nitrite Negative Urine Bilirubin Negative Urine Urobilinogen Negative Ur Leukocyte Esterase Negative Urine WBC (Auto) 12 Urine RBC (Auto) 110 Ur Epithelial Cells Rare Urine Mucus Rare RPR Titer labs noted, u/a is consistent with current menstruation. Assessment: 05/06/17 10:31 Withdrawal sx. Plan: Continue detox
[2017-05-06] MEDS: PRENATAL VITAMINS W/ FOLIC ACID TABLET (FP) PO SCH (11:00)
[2017-05-06] MEDS: ESCITALOPRAM OXALATE 20 MG TABLET (FP) PO SCH (11:00)
[2017-05-06] MEDS: NICOTINE 14 MG/24 HOURS TOPICAL PATCH TD SCH (11:01)
[2017-05-06] MEDS: CYCLOBENZAPRINE HCL 10 MG TABLET (FP) PO PRN ×2 (11:02→22:49)
[2017-05-06] MEDS: THIAMINE HCL 100 MG TABLET (FP) PO SCH (22:49)
[2017-05-06] MEDS: QUEtiapine FUMARATE 400 MG TABLET PO SCH (22:49)
[2017-05-07] MEDS: diazePAM 5 MG TABLET PO PRN ×2 (08:46→12:49)
--- NOTE | 2017-05-07 09:32 | PN ---
BHS Progress Note (SOAP) Subjective: Sweating,interrupted sleep,restless Objective: 05/07/17 09:31 Vital Signs - 8 hr 05/07/17 05/07/17 03:30 06:00 Temperature 98.1 F Pulse Rate 52 L Respiratory 18 18 Rate Blood Pressure 104/56 Assessment: 05/07/17 09:31 Withdrawal sx. Plan: Continue detox
[2017-05-07] MEDS ORDERED: METHADONE HCL 5 MG TABLET (FOR DETOX USE ONLY) PO ONE (10:00)
[2017-05-07] MEDS: ESCITALOPRAM OXALATE 20 MG TABLET (FP) PO SCH (10:40)
[2017-05-07] MEDS: NICOTINE 14 MG/24 HOURS TOPICAL PATCH TD SCH (10:40)
[2017-05-07] MEDS: PRENATAL VITAMINS W/ FOLIC ACID TABLET (FP) PO SCH (10:40)
[2017-05-07] MEDS: CYCLOBENZAPRINE HCL 10 MG TABLET (FP) PO PRN ×2 (10:43→22:24)
[2017-05-07] MEDS: QUEtiapine FUMARATE 400 MG TABLET PO SCH (22:25)
[2017-05-07] MEDS: IBUPROFEN 400 MG TABLET (FP) PO PRN (22:25)
[2017-05-07] MEDS: THIAMINE HCL 100 MG TABLET (FP) PO SCH (22:26)
[2017-05-07] MEDS: hydrOXYzine PAMOATE 50 MG CAPSULE (FP) PO PRN (22:26)
[2017-05-08] MEDS ORDERED: METHADONE HCL 10 MG TABLET (FOR DETOX USE ONLY) PO ONE (10:00)
[2017-05-08] MEDS: NICOTINE 14 MG/24 HOURS TOPICAL PATCH TD SCH (10:52)
[2017-05-08] MEDS: PRENATAL VITAMINS W/ FOLIC ACID TABLET (FP) PO SCH (10:52)
[2017-05-08] MEDS: ESCITALOPRAM OXALATE 20 MG TABLET (FP) PO SCH (10:53)
[2017-05-08] MEDS: CYCLOBENZAPRINE HCL 10 MG TABLET (FP) PO PRN ×2 (10:54→22:46)
--- NOTE | 2017-05-08 11:17 | PN ---
BHS Progress Note (SOAP) Subjective: bone aches anxiety restlessness Objective: 05/08/17 11:16 Vital Signs Temperature 98.2 F 05/08/17 06:00 Pulse Rate 82 05/08/17 06:00 Respiratory Rate 18 05/08/17 06:00 Blood Pressure 98/63 05/08/17 06:00 O2 Sat by Pulse Oximetry (%) Laboratory Last Values WBC 6.2 K/mm3 (4.0-10.0) 05/04/17 15:00 RBC 4.72 M/mm3 (3.60-5.2) 05/04/17 15:00 Hgb 14.4 GM/dL (10.7-15.3) 05/04/17 15:00 Hct 42.3 % (32.4-45.2) 05/04/17 15:00 MCV 89.6 fl (80-96) 05/04/17 15:00 MCH 30.4 pg (25.7-33.7) 05/04/17 15:00 MCHC 34.0 g/dl (32.0-36.0) 05/04/17 15:00 RDW 13.7 % (11.6-15.6) 05/04/17 15:00 Plt Count 196 K/MM3 (134-434) D 05/04/17 15:00 MPV 9.7 fl (7.5-11.1) 05/04/17 15:00 Sodium 141 mmol/L (136-145) 05/04/17 15:00 Potassium 4.6 mmol/L (3.5-5.1) 05/04/17 15:00 Chloride 102 mmol/L (98-107) 05/04/17 15:00 Carbon Dioxide 31 mmol/L (21-32) 05/04/17 15:00 Anion Gap 8 (8-16) 05/04/17 15:00 BUN 16 mg/dL (7-18) 05/04/17 15:00 Creatinine 0.9 mg/dL (0.55-1.02) 05/04/17 15:00 Creat Clearance w eGFR > 60 (>60) 05/04/17 15:00 Random Glucose 100 mg/dL (74-106) 05/04/17 15:00 Calcium 8.9 mg/dL (8.5-10.1) 05/04/17 15:00 Total Bilirubin 0.5 mg/dL (0.2-1.0) D 05/04/17 15:00 AST 23 U/L (15-37) 05/04/17 15:00 ALT 36 U/L (12-78) 05/04/17 15:00 Alkaline Phosphatase 77 U/L (45-117) 05/04/17 15:00 Total Protein 7.5 g/dl (6.4-8.2) 05/04/17 15:00 Albumin 4.1 g/dl (3.4-5.0) 05/04/17 15:00 Urine Color Dkyellow 05/04/17 20:00 Urine Appearance Clear 05/04/17 20:00 Urine pH 5.0 (5.0-8.0) 05/04/17 20:00 Ur Specific [place] 1.027 (1.001-1.035) 05/04/17 20:00 Urine Protein 1+ (NEGATIVE) H 05/04/17 20:00 Urine Glucose (UA) Negative (NEGATIVE) 05/04/17 20:00 Urine Ketones Trace (NEGATIVE) H 05/04/17 20:00 Urine Blood 3+ (NEGATIVE) H 05/04/17 20:00 Urine Nitrite Negative (NEGATIVE) 05/04/17 20:00 Urine Bilirubin Negative (NEGATIVE) 05/04/17 20:00 Urine Urobilinogen Negative mg/dL (0.2-1.0) 05/04/17 20:00 Ur Leukocyte Esterase Negative (NEGATIVE) 05/04/17 20:00 Urine WBC (Auto) 12 /hpf (3-5) 05/04/17 20:00 Urine RBC (Auto) 110 /hpf (0-3) 05/04/17 20:00 Ur Epithelial Cells Rare /HPF (FEW) 05/04/17 20:00 Urine Mucus Rare 05/04/17 20:00 RPR Titer Nonreactive (NONREACTIVE) 05/04/17 15:00 lab noted Assessment: 05/08/17 11:16 withdrawal sx Plan: medically supervised detox
[2017-05-08] MEDS: IBUPROFEN 400 MG TABLET (FP) PO PRN (20:04)
[2017-05-08] MEDS: QUEtiapine FUMARATE 400 MG TABLET PO SCH (22:46)
[2017-05-08] MEDS: THIAMINE HCL 100 MG TABLET (FP) PO SCH (22:46)
[2017-05-08] MEDS: hydrOXYzine PAMOATE 50 MG CAPSULE (FP) PO PRN (22:46)
[2017-05-08 23:24] VITALS: TEMP 98.2
[2017-05-09] MEDS ORDERED: METHADONE HCL 5 MG TABLET (FOR DETOX USE ONLY) PO ONE (06:00)
--- NOTE | 2017-05-09 09:08 | DS ---
[facility] Detox Discharge Summary Admission Date: 05/04/17 Discharge Date: 05/09/17 - History Present History: Opioid Dependence - Physical Exam Results Vital Signs: Vital Signs Temperature 98.2 F 05/09/17 06:21 Pulse Rate 72 05/09/17 06:21 Respiratory Rate 18 05/09/17 06:21 Blood Pressure 101/59 05/09/17 06:21 O2 Sat by Pulse Oximetry (%) Pertinent Admission Physical Exam Findings: withdrawal sx Vital Signs Temperature 98.2 F 05/09/17 06:21 Pulse Rate 72 05/09/17 06:21 Respiratory Rate 18 05/09/17 06:21 Blood Pressure 101/59 05/09/17 06:21 O2 Sat by Pulse Oximetry (%) Laboratory Last Values WBC 6.2 K/mm3 (4.0-10.0) 05/04/17 15:00 RBC 4.72 M/mm3 (3.60-5.2) 05/04/17 15:00 Hgb 14.4 GM/dL (10.7-15.3) 05/04/17 15:00 Hct 42.3 % (32.4-45.2) 05/04/17 15:00 MCV 89.6 fl (80-96) 05/04/17 15:00 MCH 30.4 pg (25.7-33.7) 05/04/17 15:00 MCHC 34.0 g/dl (32.0-36.0) 05/04/17 15:00 RDW 13.7 % (11.6-15.6) 05/04/17 15:00 Plt Count 196 K/MM3 (134-434) D 05/04/17 15:00 MPV 9.7 fl (7.5-11.1) 05/04/17 15:00 Sodium 141 mmol/L (136-145) 05/04/17 15:00 Potassium 4.6 mmol/L (3.5-5.1) 05/04/17 15:00 Chloride 102 mmol/L (98-107) 05/04/17 15:00 Carbon Dioxide 31 mmol/L (21-32) 05/04/17 15:00 Anion Gap 8 (8-16) 05/04/17 15:00 BUN 16 mg/dL (7-18) 05/04/17 15:00 Creatinine 0.9 mg/dL (0.55-1.02) 05/04/17 15:00 Creat Clearance w eGFR > 60 (>60) 05/04/17 15:00 Random Glucose 100 mg/dL (74-106) 05/04/17 15:00 Calcium 8.9 mg/dL (8.5-10.1) 05/04/17 15:00 Total Bilirubin 0.5 mg/dL (0.2-1.0) D 05/04/17 15:00 AST 23 U/L (15-37) 05/04/17 15:00 ALT 36 U/L (12-78) 05/04/17 15:00 Alkaline Phosphatase 77 U/L (45-117) 05/04/17 15:00 Total Protein 7.5 g/dl (6.4-8.2) 05/04/17 15:00 Albumin 4.1 g/dl (3.4-5.0) 05/04/17 15:00 Urine Color Dkyellow 05/04/17 20:00 Urine Appearance Clear 05/04/17 20:00 Urine pH 5.0 (5.0-8.0) 05/04/17 20:00 Ur Specific [place] 1.027 (1.001-1.035) 05/04/17 20:00 Urine Protein 1+ (NEGATIVE) H 05/04/17 20:00 Urine Glucose (UA) Negative (NEGATIVE) 05/04/17 20:00 Urine Ketones Trace (NEGATIVE) H 05/04/17 20:00 Urine Blood 3+ (NEGATIVE) H 05/04/17 20:00 Urine Nitrite Negative (NEGATIVE) 05/04/17 20:00 Urine Bilirubin Negative (NEGATIVE) 05/04/17 20:00 Urine Urobilinogen Negative mg/dL (0.2-1.0) 05/04/17 20:00 Ur Leukocyte Esterase Negative (NEGATIVE) 05/04/17 20:00 Urine WBC (Auto) 12 /hpf (3-5) 05/04/17 20:00 Urine RBC (Auto) 110 /hpf (0-3) 05/04/17 20:00 Ur Epithelial Cells Rare /HPF (FEW) 05/04/17 20:00 Urine Mucus Rare 05/04/17 20:00 RPR Titer Nonreactive (NONREACTIVE) 05/04/17 15:00 lab noted - Treatment Hospital Course: Detox Protocol Followed, Detoxed Safely, Responded well, Discharged Condition Good, Rehab Referral Accepted - Medication Discharge Medications: Ambulatory Orders Clonazepam [Klonopin -] 0.5 mg PO DAILY 05/04/17 Escitalopram Oxalate [Lexapro -] 20 mg PO DAILY #30 tablet 05/05/17 Quetiapine Fumarate [Seroquel -] 400 mg PO HS #30 tab 05/05/17 - Diagnosis (1) Opioid dependence with withdrawal Current Visit: Yes Status: Acute (2) Bipolar II disorder Current Visit: Yes Status: Suspected - AMA Did Patient Leave Against Medical Advice: No
[2017-05-09] MEDS: PRENATAL VITAMINS W/ FOLIC ACID TABLET (FP) PO SCH (09:48)
[2017-05-09] MEDS: ESCITALOPRAM OXALATE 20 MG TABLET (FP) PO SCH (09:48)
[2017-05-09] MEDS: CYCLOBENZAPRINE HCL 10 MG TABLET (FP) PO PRN (09:51)
[2017-05-09 11:05] VITALS: BP 121/73; PULSE 80
== END 2017-05-09 10:29 | disposition home or self-care (01) | DRG 773 ==
LOC: YASAS 08:49 → Y6N 15:13
PROVIDERS: ADMIT Internal Medicine; ATTEND Internal Medicine
PROC: HZ2ZZZZ Detoxification Services for Substance Abuse Treatment (ICD-10-PCS; principal; 2017-05-04)
DX: F11.23 Opioid dependence with withdrawal (principal); F11.24 Opioid dependence with opioid-induced mood disorder; F13.20 Sedative, hypnotic or anxiolytic dependence, uncomplicated; F12.20 Cannabis dependence, uncomplicated; F17.210 Nicotine dependence, cigarettes, uncomplicated; F31.81 Bipolar II disorder; F41.8 Other specified anxiety disorders; F33.1 Major depressive disorder, recurrent, moderate; F60.9 Personality disorder, unspecified; F19.24 Other psychoactive substance dependence with psychoactive substance-induced mood disorder; K21.9 Gastro-esophageal reflux disease without esophagitis; M54.5 Low back pain; G89.29 Other chronic pain
CPT/HCPCS: 36415; 80053; 81003; 81015; 85027; 86593; 93005; 93010

== ENCOUNTER 2017-05-14 10:27 | Inpatient (IN) | payer OTHER ==
[2017-05-14 11:02] VITALS: BMI 33.8
[2017-05-14] MEDS ORDERED: METHADONE HCL 10 MG TABLET (FOR DETOX USE ONLY) PO ONE ×2 (14:25→23:00)
[2017-05-14] MEDS ORDERED: MENTHOL/PHENOL 1 EACH UD MM PRN (14:25)
[2017-05-14] MEDS ORDERED: MAGNESIUM CITRATE 300 ML BOTTLE PO PRN (14:25)
[2017-05-14] MEDS ORDERED: ACETAMINOPHEN 325 MG TABLET (FP) PO PRN (14:25)
[2017-05-14] MEDS ORDERED: LOPERAMIDE HCL 2 MG CAPSULE PO PRN (14:25)
[2017-05-14] MEDS ORDERED: P-EPHED 60MG/TRIPROLIDI 2.5MG TABLET PO PRN (14:25)
[2017-05-14] MEDS ORDERED: MAGNESIUM HYDROX 2400MG/30ML ORAL SUSPENSION 30 ML CUP PO PRN (14:25)
[2017-05-14] MEDS ORDERED: MAG HYDROX/AL HYDROX/SIMETH 30 ML UNIT-DOSE CUP PO PRN (14:25)
[2017-05-14] MEDS ORDERED: guaiFENesin/D-METHORPHAN HB 10 ML UNIT-DOSE CUPS PO PRN (14:25)
--- NOTE | 2017-05-14 14:25 | HP ---
COWS - Scale Resting Pulse: 0= [place] 80 or Below Sweatin= Chills/Flushing Restless Observation: 1= Difficult to Sit Still Pupil Size: 0= Normal to Room Light Bone or Joint Aches: 1= Mild Discomfort Runny Nose/ Eye Tearin= Nasal Congestion GI Upset > 30mins: 1= Stomach Cramp Tremor Observation: 1= Tremor [place], Not Seen Yawning Observation: 1= 1-2x During Session Anxiety or Irritability: 2=Irritable/Anxious Goose Flesh Skin: 0=Smooth Skin COWS Score: 9 Admission ROS BHS - HPI Chief Complaint: I want help to stop using, I can't do it on my own, I don't have the will power Allergies/Adverse Reactions: Allergies Allergy/AdvReac Type Severity Reaction Status Date / Time No Known Allergies Allergy Verified 05/04/17 11:23 History of Present Illness: 31 yo woman here for detox from opiates. Patient was here for detox 05/04-05/09 - she was supposed to go to [facility] for residential treatment but when she called she was told they had no information on her and she relapsed. She is in an outpatient program ([facility]) and they helped her do the phone screening on 05/12 but she was told she had to have 'nothing in her system' and she needed to come to detox and then she could go to [facility]. She has had a history of four overdoses in the past. Exam Limitations: Clinical Condition - Ebola screening Have you traveled outside of the country in the last 21 days: No (NN) Have you had contact with anyone from an Ebola affected area: No Have you been sick,other than usual withdrawal symptoms: No Do you have a fever: No - Review of Systems Constitutional: Loss of Appetite, Malaise, Changes in sleep, Weakness EENT: reports: Nose Congestion Respiratory: reports: No Symptoms reported Cardiac: reports: No Symptoms Reported GI: reports: Poor Fluid Intake, Indigestion : reports: No Symptoms Reported Musculoskeletal: reports: Back Pain Integumentary: reports: No Symptoms Reported Neuro: reports: Headache Endocrine: reports: No Symptoms Reported Hematology: reports: No Symptoms Reported Psychiatric: reports: Judgement Intact, Mood/Affect Appropiate, Orientated x3, Anxious Other Systems: Reviewed and Negative Patient History - Patient Medical History Hx Anemia: No Hx Asthma: No Hx Chronic Obstructive Pulmonary Disease (COPD): No Hx Cancer: No Hx Cardiac Disorders: No Hx Congestive Heart Failure: No Hx Hypertension: No Hx Hypercholesterolemia: No Hx Pacemaker: No HX Cerebrovascular Accident: No Hx Seizures: No Hx Dementia: No Hx Diabetes: No Hx Gastrointestinal Disorders: Yes (Hx of GERD) Hx Liver Disease: No Hx Genitourinary Disorders: No Hx Sexually Transmitted Disorders: Yes (HX HPV WITH LEEP/COLPOSCOPY PROCEDURES) Hx Renal Disease (ESRD): No Hx Thyroid Disease: No Hx Human Immunodeficiency Virus (HIV): No (negative last 06/25) Hx Hepatitis C: No Hx Depression: Yes (hospitalized jan 2017 [place] in [place]) Hx Suicide Attempt: No Hx Bipolar Disorder: No Hx Schizophrenia: No - Patient Surgical History Past Surgical History: Yes Hx Neurologic Surgery: No Hx Cataract Extraction: No Hx Cardiac Surgery: No Hx Lung Surgery: No Hx Breast Surgery: No Hx Breast Biopsy: No Hx Abdominal Surgery: No Hx Appendectomy: No Hx Cholecystectomy: No Hx Genitourinary Surgery: Yes (COLPOSCOPY/LEEP 2005) Hx Section: No Hx Orthopedic Surgery: No Hx Hysterectomy: No Other Surgical History: FRACTURED RT. ELBOW AND RT. 2 FINGER ON 03/11/2015 SEC. TO FALL Anesthesia Reaction: No - PPD History Documented Results: Negative w/proof Date: 12/19/15 Results: 0 MM PPD to be Administered?: No - Reproductive History Patient is a Female of Child Bearing Age (11 -55 yrs old): Yes Last Menstrual Period: 05/01/17 - Smoking Cessation Smoking history: Current every day smoker Have you smoked in the past 12 months: Yes Aproximately how many cigarettes per day: 10 Cigars Per Day: 0 Hx Chewing Tobacco Use: No Initiated information on smoking cessation: Yes 'Breaking Loose' booklet given: 05/14/17 (give on floor) - Substance & Tx. History Hx Alcohol Use: No Hx Substance Use: Yes Substance Use Type: Heroin, Marijuana Hx Substance Use Treatment: Yes (detox) - Substances Abused heroin Route: Inhalation Frequency: 3-6 times per week Amount used: 5 bags Age of first use: 29 Date of Last Use: 05/13/17 Marijuana/Hashish Route: Smoking Frequency: 1-2 times per week Amount used: 1 joint Age of first use: 18 Date of Last Use: 05/13/17 Family Disease History - Family Disease History Family Disease History: Heart Disease: Father (gout, marijuana, alcohol, cocaine ), Other: Father, Mother (depression, anxiety), Brother (one - living - healthy) , Sister (one - living - healthy), Daughter (one -- healthy) Admission Physical Exam [facility] - Vital Signs Vital Signs: Vital Signs - 24 hr 05/14/17 11:00 Temperature 98.6 F Pulse Rate 96 H Respiratory 18 Rate Blood Pressure 123/76 - Physical General Appearance: Yes: Nourished, Appropriately Dressed, Mild Distress, Obese , Anxious HEENTM: Yes: EOMI, Hearing grossly Normal, Normocephalic, Normal Voice, Pharynx Normal Respiratory: Yes: Normal Breath Sounds, No Respiratory Distress Neck: Yes: No masses,lesions,Nodules, Supple Breast: Yes: Breast Exam Deferred Cardiology: Yes: Regular Rhythm, Regular Rate Abdominal: Yes: Soft, Protuberent Genitourinary: Yes: Within Normal Limits Back: Yes: Normal Inspection, Muscle Spasm Musculoskeletal: Yes: full range of Motion, Gait Steady Extremities: Yes: Normal Inspection, Normal Range of Motion, Non-Tender Neurological: Yes: Fully Oriented, Alert, Motor Strength 5/5, Normal Mood/Affect , Normal Response Integumentary: Yes: Normal Color, Warm Lymphatic: Yes: Within Normal Limits - Diagnostic (1) Opioid dependence with withdrawal Current Visit: Yes Status: Chronic (2) Cannabis dependence Current Visit: Yes Status: Chronic (3) GERD (gastroesophageal reflux disease) Current Visit: Yes Status: Chronic Qualifiers: Esophagitis presence: esophagitis presence not specified Qualified Code(s) : K21.9 - Gastro-esophageal reflux disease without esophagitis (4) Chronic back pain Current Visit: Yes Status: Chronic Qualifiers: Back pain location: low back pain Back pain laterality: midline Sciatica presence: without sciatica Qualified Code(s): M54.5 - Low back pain; G89.29 - Other chronic pain; G89.29 - Other chronic pain Cleared for Admission [facility] - Detox or Rehab [facility] Level of Care: Medically Managed Detox Regimen/Protocol: Methadone [facility] Breath Alcohol Content Breath Alcohol Content: 0 Urine Pregancy Test - Result Urine Test Results: Negative- NO Line Present Urine Drug Screen - Results Drug Screen Negative: No Urine Drug Screen Results: OPI-Opiates, BZO-Benzodiazepines, MTD-Methadone, TCA- Tricyclic Antidepress, OXY-Oxycodone
[2017-05-14] MEDS ORDERED: METHADONE HCL 10 MG TABLET (FOR DETOX USE ONLY) ONE (16:42)
[2017-05-14] MEDS: PANTOPRAZOLE 20 MG TABLET (FP) PO SCH (16:45)
[2017-05-14] MEDS: diazePAM 5 MG TABLET PO PRN ×2 (16:45→22:40)
[2017-05-14] MEDS: CYCLOBENZAPRINE HCL 10 MG TABLET (FP) PO PRN (16:46)
[2017-05-14 18:23] LABS: URINE APPEARANCE TURBID; URINE BILIRUBIN NEGATIVE (NEGATIVE); URINE BLOOD NEGATIVE (NEGATIVE); URINE COLOR YELLOW; URINE GLUCOSE (UA) NEGATIVE (NEGATIVE); URINE KETONE NEGATIVE (NEGATIVE); URINE NITRITE NEGATIVE (NEGATIVE); URINE PROTEIN NEGATIVE (NEGATIVE); URINE UROBILINOGEN NEGATIVE mg/dL (0.2-1.0)
[2017-05-14 18:45] LABS: URINE LEUK ESTERASE 1+ (NEGATIVE)
[2017-05-14 18:47] LABS: EPI CELLS RARE /HPF (FEW); URINE BACTERIA MODERATE /hpf (NONE SEEN); URINE MUCUS FEW
[2017-05-14] MEDS: THIAMINE HCL 100 MG TABLET (FP) PO SCH (22:40)
[2017-05-14] MEDS: IBUPROFEN 400 MG TABLET (FP) PO PRN (22:41)
[2017-05-15] MEDS: IBUPROFEN 400 MG TABLET (FP) PO PRN (07:41)
[2017-05-15] MEDS: CYCLOBENZAPRINE HCL 10 MG TABLET (FP) PO PRN ×3 (07:41→22:13)
[2017-05-15] MEDS: diazePAM 5 MG TABLET PO PRN ×2 (07:41→13:05)
[2017-05-15] MEDS ORDERED: METHADONE HCL 10 MG TABLET (FOR DETOX USE ONLY) PO ONE (10:00)
[2017-05-15 10:11] LABS: HEMATOCRIT 43.2 % (32.4-45.2); HEMOGLOBIN 14.5 GM/dL (10.7-15.3); MCH 29.8 pg (25.7-33.7); MCHC 33.4 g/dl (32.0-36.0); MEAN PLT VOLUME 9.1 fl (7.5-11.1); PLATELET COUNT 141 K/MM3 (134-434); RBC 4.86 M/mm3 (3.60-5.2); RDW 13.6 % (11.6-15.6); WHITE BLOOD COUNT 4.8 K/mm3 (4.0-10.0)
[2017-05-15 10:25] LABS: ALBUMIN 3.6 g/dl (3.4-5.0); ANION GAP 4 (8-16); BLOOD UREA NITROGEN 9 mg/dL (7-18); CALCIUM 8.3 mg/dL (8.5-10.1); CHLORIDE 104 mmol/L (98-107); CO2 31 mmol/L (21-32); GLUCOSE,RANDOM 82 mg/dL (74-106); POTASSIUM 3.6 mmol/L (3.5-5.1); SODIUM 139 mmol/L (136-145)
[2017-05-15] MEDS: PANTOPRAZOLE 20 MG TABLET (FP) PO SCH (10:29)
[2017-05-15] MEDS: PRENATAL VITAMINS W/ FOLIC ACID TABLET (FP) PO SCH (10:29)
[2017-05-15 10:30] LABS: ALK PHOS 125 U/L (45-117); BILIRUBIN,TOTAL 0.6 mg/dL (0.2-1.0); CREATININE 0.8 mg/dL (0.55-1.02); SGOT/AST 111 U/L (15-37); SGPT/ALT 130 U/L (12-78); TOT PROT 6.6 g/dl (6.4-8.2)
--- NOTE | 2017-05-15 11:24 | PN ---
BHS COWS - Scale Resting Pulse: 1= [place] 81-100 Sweatin= Chills/Flushing Restless Observation: 1= Difficult to Sit Still Pupil Size: 0= Normal to Room Light Bone or Joint Aches: 1= Mild Discomfort Runny Nose/ Eye Tearin= Nasal Congestion GI Upset > 30mins: 1= Stomach Cramp Tremor Observation of Outstretched Hands: 1= Tremor [place], Not Seen Yawning Observation: 1= 1-2x During Session Anxiety or Irritability: 0= None Goose Flesh Skin: 0=Smooth Skin COWS Score: 8 BHS Progress Note (SOAP) Subjective: joint aches swet GI distress Objective: 05/15/17 11:23 Vital Signs Temperature 98.1 F 05/15/17 10:14 Pulse Rate 85 05/15/17 10:14 Respiratory Rate 16 05/15/17 10:14 Blood Pressure 112/76 05/15/17 10:14 O2 Sat by Pulse Oximetry (%) Laboratory Last Values WBC 4.8 K/mm3 (4.0-10.0) 05/15/17 07:40 RBC 4.86 M/mm3 (3.60-5.2) 05/15/17 07:40 Hgb 14.5 GM/dL (10.7-15.3) 05/15/17 07:40 Hct 43.2 % (32.4-45.2) 05/15/17 07:40 MCV 89.0 fl (80-96) 05/15/17 07:40 MCH 29.8 pg (25.7-33.7) 05/15/17 07:40 MCHC 33.4 g/dl (32.0-36.0) 05/15/17 07:40 RDW 13.6 % (11.6-15.6) 05/15/17 07:40 Plt Count 141 K/MM3 (134-434) D 05/15/17 07:40 MPV 9.1 fl (7.5-11.1) 05/15/17 07:40 Sodium 139 mmol/L (136-145) 05/15/17 07:40 Potassium 3.6 mmol/L (3.5-5.1) 05/15/17 07:40 Chloride 104 mmol/L (98-107) 02/04/18 07:40 Carbon Dioxide 31 mmol/L (21-32) 05/15/17 07:40 Anion Gap 4 (8-16) L 05/15/17 07:40 BUN 9 mg/dL (7-18) 05/15/17 07:40 Creatinine 0.8 mg/dL (0.55-1.02) 05/15/17 07:40 Creat Clearance w eGFR > 60 (>60) 05/15/17 07:40 Random Glucose 82 mg/dL (74-106) 05/15/17 07:40 Calcium 8.3 mg/dL (8.5-10.1) L 05/15/17 07:40 Total Bilirubin 0.6 mg/dL (0.2-1.0) 05/15/17 07:40 AST 111 U/L (15-37) H 05/15/17 07:40 ALT 130 U/L (12-78) H 05/15/17 07:40 Alkaline Phosphatase 125 U/L (45-117) H 05/15/17 07:40 Total Protein 6.6 g/dl (6.4-8.2) 05/15/17 07:40 Albumin 3.6 g/dl (3.4-5.0) 05/15/17 07:40 Urine Color Yellow 05/14/17 17:30 Urine Appearance Turbid 05/14/17 17:30 Urine pH 5.0 (5.0-8.0) 05/14/17 17:30 Ur Specific [place] 1.025 (1.001-1.035) 05/14/17 17:30 Urine Protein Negative (NEGATIVE) 05/14/17 17:30 Urine Glucose (UA) Negative (NEGATIVE) 05/14/17 17:30 Urine Ketones Negative (NEGATIVE) 05/14/17 17:30 Urine Blood Negative (NEGATIVE) 05/14/17 17:30 Urine Nitrite Negative (NEGATIVE) 05/14/17 17:30 Urine Bilirubin Negative (NEGATIVE) 05/14/17 17:30 Urine Urobilinogen Negative mg/dL (0.2-1.0) 05/14/17 17:30 Ur Leukocyte Esterase 1+ (NEGATIVE) H 05/14/17 17:30 Urine WBC (Auto) 45 /hpf (3-5) 05/14/17 17:30 Urine RBC (Auto) None /hpf (0-3) 05/14/17 17:30 Ur Epithelial Cells Rare /HPF (FEW) 05/14/17 17:30 Urine Bacteria Moderate /hpf (NONE SEEN) 05/14/17 17:30 Urine Mucus Few 05/14/17 17:30 lab noted Assessment: 05/15/17 11:24 withdrawal sx Plan: continue detox
--- NOTE | 2017-05-15 11:43 | CONSULT ---
[facility] Psychiatric Consult - Data Date of interview: 05/15/17 Admission source: Self-referred Identifying data: Ms Freed is a 31 years old single female, mother of a 3 years old daughter, unemployed on food stamp, domiciled living with her parents seeking detox treatment for heroin and marijuana Substance Abuse History: Reports history of heroin and marijuana use. Refer to addiction counselor's note for further information Medical History: Significant for GERD, HPV with LEEP/colposcopy procedure in 2005 and history of orthosurgery for fracture left elbow/last right 2 fingers of finger. Smokes 10 cigarrettes daily Psychiatric History: Reports being diagnosed with MDD at age 16 and started on antidepressant medications. Report 4 previous psychiatric admissions once to [facility] and [facility]. Most recent one was [facility] JAN 2017 to [facility]. Reports seeing Dr Roca, a private psyvhiatrist in [place] and he is prescribed Lexapro 20 mg o daily and Seroquel 500 mg po HS. Physical/Sexual Abuse/Trauma History: Denies history of emotional, physical or sexual abuse as well as DV relationship Additional Comment: Denies criminal history Mental Status Exam - Mental Status Exam Alert and Oriented to: Time, Place, Person Cognitive Function: Fair Patient Appearance: Well Groomed Mood: Hopeful, Euthymic Affect: Appropriate Patient Behavior: Cooperative Speech Pattern: Clear Voice Loudness: Normal Thought Process: Intact Thought Disorder: Not Present Hallucinations: Denies Suicidal Ideation: Denies Homicidal Ideation: Denies Insight/Judgement: Poor Sleep: Poorly Appetite: Good Muscle strength/Tone: Normal Gait/Station: Normal Psychiatric Findings - Problem List ([place] 1, 2,3) (1) MDD (major depressive disorder), recurrent episode, moderate Current Visit: No Status: Chronic (2) Substance-induced sleep disorder Current Visit: Yes Status: Acute (3) Opioid dependence with withdrawal Current Visit: Yes Status: Chronic (4) Cannabis dependence Current Visit: Yes Status: Chronic (5) Nicotine dependence Current Visit: No Status: Chronic Qualifiers: Nicotine product type: cigarettes Substance use status: in withdrawal Qualified Code(s): F17.213 - Nicotine dependence, cigarettes, with withdrawal (6) Chronic back pain Current Visit: Yes Status: Chronic Qualifiers: Back pain location: low back pain Back pain laterality: midline Sciatica presence: without sciatica Qualified Code(s): M54.5 - Low back pain; G89.29 - Other chronic pain; G89.29 - Other chronic pain (7) GERD (gastroesophageal reflux disease) Current Visit: Yes Status: Chronic Qualifiers: Esophagitis presence: esophagitis presence not specified Qualified Code(s) : K21.9 - Gastro-esophageal reflux disease without esophagitis - Initial Treatment Plan Initial Treatment Plan: 1) Continue Lexapro 20 mg po daily and Seroquel 500 mg po HS. 2) Continue inpatient detoxification
--- NOTE | 2017-05-15 13:14 | EKG ---
Test Reason : Blood Pressure : / mmHG Vent. Rate : 078 BPM Atrial Rate : 078 BPM P-R Int : 124 ms QRS Dur : 090 ms QT Int : 412 ms P-R-T Axes : 012 036 021 degrees QTc Int : 469 ms NORMAL SINUS RHYTHM NORMAL ECG WHEN COMPARED WITH ECG OF 04-MAY-2017 15:53, NO SIGNIFICANT CHANGE WAS FOUND BASELINE ARTIFACT Confirmed by ELODIA JAIMES MD ([id number]) on 05/15/2017 1:13:49 PM Referred By: Confirmed By:ELODIA JAIMES MD
[2017-05-15] MEDS: ESCITALOPRAM OXALATE 20 MG TABLET (FP) PO SCH (14:32)
[2017-05-15] MEDS ORDERED: QUEtiapine FUMARATE 400 MG TABLET PO SCH (22:00)
[2017-05-15] MEDS: THIAMINE HCL 100 MG TABLET (FP) PO SCH (22:13)
--- NOTE | 2017-05-16 09:30 | PN ---
BHS COWS - Scale Resting Pulse: 0= [place] 80 or Below Sweatin= Chills/Flushing Restless Observation: 1= Difficult to Sit Still Pupil Size: 0= Normal to Room Light Bone or Joint Aches: 1= Mild Discomfort Runny Nose/ Eye Tearin= Nasal Congestion GI Upset > 30mins: 1= Stomach Cramp Tremor Observation of Outstretched Hands: 1= Tremor [place], Not Seen Yawning Observation: 0= None Anxiety or Irritability: 1=Feels Anxious/Irritable Goose Flesh Skin: 0=Smooth Skin COWS Score: 7 BHS Progress Note (SOAP) Subjective: restlessness anxiety irritable sweat agitation Objective: 05/16/17 09:28 Vital Signs Temperature 97.9 F 05/16/17 06:25 Pulse Rate 76 05/16/17 06:25 Respiratory Rate 18 05/16/17 06:25 Blood Pressure 98/50 05/16/17 06:25 O2 Sat by Pulse Oximetry (%) Laboratory Last Values WBC 4.8 K/mm3 (4.0-10.0) 05/15/17 07:40 RBC 4.86 M/mm3 (3.60-5.2) 05/15/17 07:40 Hgb 14.5 GM/dL (10.7-15.3) 05/15/17 07:40 Hct 43.2 % (32.4-45.2) 05/15/17 07:40 MCV 89.0 fl (80-96) 05/15/17 07:40 MCH 29.8 pg (25.7-33.7) 05/15/17 07:40 MCHC 33.4 g/dl (32.0-36.0) 05/15/17 07:40 RDW 13.6 % (11.6-15.6) 05/15/17 07:40 Plt Count 141 K/MM3 (134-434) D 05/15/17 07:40 MPV 9.1 fl (7.5-11.1) 05/15/17 07:40 Sodium 139 mmol/L (136-145) 05/15/17 07:40 Potassium 3.6 mmol/L (3.5-5.1) 05/15/17 07:40 Chloride 104 mmol/L (98-107) 05/15/17 07:40 Carbon Dioxide 31 mmol/L (21-32) 05/15/17 07:40 Anion Gap 4 (8-16) L 05/15/17 07:40 BUN 9 mg/dL (7-18) 05/15/17 07:40 Creatinine 0.8 mg/dL (0.55-1.02) 05/15/17 07:40 Creat Clearance w eGFR > 60 (>60) 05/15/17 07:40 Random Glucose 82 mg/dL (74-106) 05/15/17 07:40 Calcium 8.3 mg/dL (8.5-10.1) L 05/15/17 07:40 Total Bilirubin 0.6 mg/dL (0.2-1.0) 05/15/17 07:40 AST 111 U/L (15-37) H 05/15/17 07:40 ALT 130 U/L (12-78) H 05/15/17 07:40 Alkaline Phosphatase 125 U/L (45-117) H 05/15/17 07:40 Total Protein 6.6 g/dl (6.4-8.2) 05/15/17 07:40 Albumin 3.6 g/dl (3.4-5.0) 05/15/17 07:40 Urine Color Yellow 05/14/17 17:30 Urine Appearance Turbid 05/14/17 17:30 Urine pH 5.0 (5.0-8.0) 05/14/17 17:30 Ur Specific [place] 1.025 (1.001-1.035) 05/14/17 17:30 Urine Protein Negative (NEGATIVE) 05/14/17 17:30 Urine Glucose (UA) Negative (NEGATIVE) 05/14/17 17:30 Urine Ketones Negative (NEGATIVE) 05/14/17 17:30 Urine Blood Negative (NEGATIVE) 05/14/17 17:30 Urine Nitrite Negative (NEGATIVE) 05/14/17 17:30 Urine Bilirubin Negative (NEGATIVE) 05/14/17 17:30 Urine Urobilinogen Negative mg/dL (0.2-1.0) 05/14/17 17:30 Ur Leukocyte Esterase 1+ (NEGATIVE) H 05/14/17 17:30 Urine WBC (Auto) 45 /hpf (3-5) 05/14/17 17:30 Urine RBC (Auto) None /hpf (0-3) 05/14/17 17:30 Ur Epithelial Cells Rare /HPF (FEW) 05/14/17 17:30 Urine Bacteria Moderate /hpf (NONE SEEN) 05/14/17 17:30 Urine Mucus Few 05/14/17 17:30 RPR Titer Nonreactive (NONREACTIVE) 05/15/17 07:40 lab noted Assessment: 05/16/17 09:29 withdrawal sx Plan: continue detox
[2017-05-16] MEDS ORDERED: METHADONE HCL 5 MG TABLET (FOR DETOX USE ONLY) PO ONE (10:00)
[2017-05-16] MEDS: PANTOPRAZOLE 20 MG TABLET (FP) PO SCH (10:27)
[2017-05-16] MEDS: CYCLOBENZAPRINE HCL 10 MG TABLET (FP) PO PRN ×3 (10:28→22:12)
[2017-05-16] MEDS: PRENATAL VITAMINS W/ FOLIC ACID TABLET (FP) PO SCH (10:28)
[2017-05-16] MEDS: ESCITALOPRAM OXALATE 20 MG TABLET (FP) PO SCH (10:28)
[2017-05-16] MEDS: diazePAM 5 MG TABLET PO PRN ×3 (10:28→22:13)
[2017-05-16] MEDS: IBUPROFEN 400 MG TABLET (FP) PO PRN (11:36)
[2017-05-16] MEDS ORDERED: QUEtiapine FUMARATE 100 MG TABLET (FP) ONE (21:37)
[2017-05-16] MEDS: QUETIAPINE FUMARATE 400 MG, QUETIAPINE FUMARATE 100 MG PO SCH (22:12)
[2017-05-16] MEDS: THIAMINE HCL 100 MG TABLET (FP) PO SCH (22:13)
[2017-05-16] MEDS: hydrOXYzine PAMOATE 25 MG CAPSULE (FP) PO PRN (22:13)
[2017-05-17] MEDS ORDERED: METHADONE HCL 5 MG TABLET (FOR DETOX USE ONLY) PO ONE (10:00)
--- NOTE | 2017-05-17 10:10 | PN ---
BHS Progress Note (SOAP) Subjective: joint aches sweat tremor stuffy nose Objective: 05/17/17 10:09 Vital Signs Temperature 97.7 F 05/17/17 06:00 Pulse Rate 66 05/17/17 06:00 Respiratory Rate 18 05/17/17 06:00 Blood Pressure 135/70 05/17/17 06:00 O2 Sat by Pulse Oximetry (%) Laboratory Last Values WBC 4.8 K/mm3 (4.0-10.0) 05/15/17 07:40 RBC 4.86 M/mm3 (3.60-5.2) 05/15/17 07:40 Hgb 14.5 GM/dL (10.7-15.3) 05/15/17 07:40 Hct 43.2 % (32.4-45.2) 05/15/17 07:40 MCV 89.0 fl (80-96) 05/15/17 07:40 MCH 29.8 pg (25.7-33.7) 05/15/17 07:40 MCHC 33.4 g/dl (32.0-36.0) 05/15/17 07:40 RDW 13.6 % (11.6-15.6) 05/15/17 07:40 Plt Count 141 K/MM3 (134-434) D 05/15/17 07:40 MPV 9.1 fl (7.5-11.1) 05/15/17 07:40 Sodium 139 mmol/L (136-145) 05/15/17 07:40 Potassium 3.6 mmol/L (3.5-5.1) 05/15/17 07:40 Chloride 104 mmol/L (98-107) 05/15/17 07:40 Carbon Dioxide 31 mmol/L (21-32) 05/15/17 07:40 Anion Gap 4 (8-16) L 05/15/17 07:40 BUN 9 mg/dL (7-18) 05/15/17 07:40 Creatinine 0.8 mg/dL (0.55-1.02) 05/15/17 07:40 Creat Clearance w eGFR > 60 (>60) 05/15/17 07:40 Random Glucose 82 mg/dL (74-106) 05/15/17 07:40 Calcium 8.3 mg/dL (8.5-10.1) L 05/15/17 07:40 Total Bilirubin 0.6 mg/dL (0.2-1.0) 05/15/17 07:40 AST 111 U/L (15-37) H 05/15/17 07:40 ALT 130 U/L (12-78) H 05/15/17 07:40 Alkaline Phosphatase 125 U/L (45-117) H 05/15/17 07:40 Total Protein 6.6 g/dl (6.4-8.2) 05/15/17 07:40 Albumin 3.6 g/dl (3.4-5.0) 05/15/17 07:40 Urine Color Yellow 05/14/17 17:30 Urine Appearance Turbid 05/14/17 17:30 Urine pH 5.0 (5.0-8.0) 05/14/17 17:30 Ur Specific [place] 1.025 (1.001-1.035) 05/14/17 17:30 Urine Protein Negative (NEGATIVE) 05/14/17 17:30 Urine Glucose (UA) Negative (NEGATIVE) 05/14/17 17:30 Urine Ketones Negative (NEGATIVE) 05/14/17 17:30 Urine Blood Negative (NEGATIVE) 05/14/17 17:30 Urine Nitrite Negative (NEGATIVE) 05/14/17 17:30 Urine Bilirubin Negative (NEGATIVE) 05/14/17 17:30 Urine Urobilinogen Negative mg/dL (0.2-1.0) 05/14/17 17:30 Ur Leukocyte Esterase 1+ (NEGATIVE) H 05/14/17 17:30 Urine WBC (Auto) 45 /hpf (3-5) 05/14/17 17:30 Urine RBC (Auto) None /hpf (0-3) 05/14/17 17:30 Ur Epithelial Cells Rare /HPF (FEW) 05/14/17 17:30 Urine Bacteria Moderate /hpf (NONE SEEN) 05/14/17 17:30 Urine Mucus Few 05/14/17 17:30 RPR Titer Nonreactive (NONREACTIVE) 05/15/17 07:40 lab noted Assessment: 05/17/17 10:09 withdrawal sx Plan: continue detox
[2017-05-17] MEDS: PRENATAL VITAMINS W/ FOLIC ACID TABLET (FP) PO SCH (10:44)
[2017-05-17] MEDS: ESCITALOPRAM OXALATE 20 MG TABLET (FP) PO SCH (10:44)
[2017-05-17] MEDS: CYCLOBENZAPRINE HCL 10 MG TABLET (FP) PO PRN ×2 (10:44→22:14)
[2017-05-17] MEDS: PANTOPRAZOLE 20 MG TABLET (FP) PO SCH (10:44)
[2017-05-17] MEDS: diazePAM 5 MG TABLET PO PRN (10:44)
[2017-05-17] MEDS ORDERED: QUEtiapine FUMARATE 100 MG TABLET (FP) ONE (21:39)
[2017-05-17] MEDS ORDERED: QUEtiapine FUMARATE 400 MG TABLET ONE (21:40)
[2017-05-17] MEDS: THIAMINE HCL 100 MG TABLET (FP) PO SCH (22:14)
[2017-05-17] MEDS: hydrOXYzine PAMOATE 25 MG CAPSULE (FP) PO PRN (22:14)
[2017-05-17] MEDS: QUETIAPINE FUMARATE 400 MG, QUETIAPINE FUMARATE 100 MG PO SCH (22:15)
[2017-05-17] MEDS: IBUPROFEN 400 MG TABLET (FP) PO PRN (22:15)
[2017-05-18] MEDS: CYCLOBENZAPRINE HCL 10 MG TABLET (FP) PO PRN ×2 (08:37→22:17)
--- NOTE | 2017-05-18 09:14 | PN ---
S Progress Note (SOAP) Subjective: mild joint aches no sweat calm alert oriented x 3 Objective: 05/18/17 09:13 Vital Signs Temperature 98.6 F 05/18/17 06:25 Pulse Rate 62 05/18/17 06:25 Respiratory Rate 16 05/18/17 06:25 Blood Pressure 91/50 05/18/17 06:25 O2 Sat by Pulse Oximetry (%) Laboratory Last Values WBC 4.8 K/mm3 (4.0-10.0) 05/15/17 07:40 RBC 4.86 M/mm3 (3.60-5.2) 05/15/17 07:40 Hgb 14.5 GM/dL (10.7-15.3) 05/15/17 07:40 Hct 43.2 % (32.4-45.2) 05/15/17 07:40 MCV 89.0 fl (80-96) 05/15/17 07:40 MCH 29.8 pg (25.7-33.7) 05/15/17 07:40 MCHC 33.4 g/dl (32.0-36.0) 05/15/17 07:40 RDW 13.6 % (11.6-15.6) 05/15/17 07:40 Plt Count 141 K/MM3 (134-434) D 05/15/17 07:40 MPV 9.1 fl (7.5-11.1) 05/15/17 07:40 Sodium 139 mmol/L (136-145) 05/15/17 07:40 Potassium 3.6 mmol/L (3.5-5.1) 05/15/17 07:40 Chloride 104 mmol/L (98-107) 05/15/17 07:40 Carbon Dioxide 31 mmol/L (21-32) 05/15/17 07:40 Anion Gap 4 (8-16) L 05/15/17 07:40 BUN 9 mg/dL (7-18) 05/15/17 07:40 Creatinine 0.8 mg/dL (0.55-1.02) 05/15/17 07:40 Creat Clearance w eGFR > 60 (>60) 05/15/17 07:40 Random Glucose 82 mg/dL (74-106) 05/15/17 07:40 Calcium 8.3 mg/dL (8.5-10.1) L 05/15/17 07:40 Total Bilirubin 0.6 mg/dL (0.2-1.0) 05/15/17 07:40 AST 111 U/L (15-37) H 05/15/17 07:40 ALT 130 U/L (12-78) H 05/15/17 07:40 Alkaline Phosphatase 125 U/L (45-117) H 05/15/17 07:40 Total Protein 6.6 g/dl (6.4-8.2) 05/15/17 07:40 Albumin 3.6 g/dl (3.4-5.0) 05/15/17 07:40 Urine Color Yellow 05/14/17 17:30 Urine Appearance Turbid 05/14/17 17:30 Urine pH 5.0 (5.0-8.0) 05/14/17 17:30 Ur Specific [place] 1.025 (1.001-1.035) 05/14/17 17:30 Urine Protein Negative (NEGATIVE) 05/14/17 17:30 Urine Glucose (UA) Negative (NEGATIVE) 05/14/17 17:30 Urine Ketones Negative (NEGATIVE) 05/14/17 17:30 Urine Blood Negative (NEGATIVE) 05/14/17 17:30 Urine Nitrite Negative (NEGATIVE) 05/14/17 17:30 Urine Bilirubin Negative (NEGATIVE) 05/14/17 17:30 Urine Urobilinogen Negative mg/dL (0.2-1.0) 05/14/17 17:30 Ur Leukocyte Esterase 1+ (NEGATIVE) H 05/14/17 17:30 Urine WBC (Auto) 45 /hpf (3-5) 05/14/17 17:30 Urine RBC (Auto) None /hpf (0-3) 05/14/17 17:30 Ur Epithelial Cells Rare /HPF (FEW) 05/14/17 17:30 Urine Bacteria Moderate /hpf (NONE SEEN) 05/14/17 17:30 Urine Mucus Few 05/14/17 17:30 RPR Titer Nonreactive (NONREACTIVE) 05/15/17 07:40 lab noted Assessment: 05/18/17 09:14 withdrawal sx Plan: medically supervised detox
[2017-05-18] MEDS ORDERED: METHADONE HCL 10 MG TABLET (FOR DETOX USE ONLY) PO ONE (10:00)
[2017-05-18] MEDS: PANTOPRAZOLE 20 MG TABLET (FP) PO SCH (10:39)
[2017-05-18] MEDS: ESCITALOPRAM OXALATE 20 MG TABLET (FP) PO SCH (10:39)
[2017-05-18] MEDS: PRENATAL VITAMINS W/ FOLIC ACID TABLET (FP) PO SCH (10:40)
[2017-05-18] MEDS: hydrOXYzine PAMOATE 25 MG CAPSULE (FP) PO PRN ×3 (10:40→22:17)
[2017-05-18] MEDS ORDERED: QUEtiapine FUMARATE 400 MG TABLET ONE (21:22)
[2017-05-18] MEDS ORDERED: QUEtiapine FUMARATE 100 MG TABLET (FP) ONE (21:22)
[2017-05-18] MEDS: IBUPROFEN 400 MG TABLET (FP) PO PRN (22:17)
[2017-05-18] MEDS: THIAMINE HCL 100 MG TABLET (FP) PO SCH (22:17)
[2017-05-18] MEDS: QUETIAPINE FUMARATE 400 MG, QUETIAPINE FUMARATE 100 MG PO SCH (22:18)
[2017-05-19] MEDS ORDERED: METHADONE HCL 5 MG TABLET (FOR DETOX USE ONLY) PO ONE (06:00)
--- NOTE | 2017-05-19 08:24 | DS ---
[facility] Detox Discharge Summary Admission Date: 05/14/17 Discharge Date: 05/19/17 - History Present History: Opioid Dependence - Physical Exam Results Vital Signs: Vital Signs Temperature 98.2 F 05/19/17 06:24 Pulse Rate 65 05/19/17 06:24 Respiratory Rate 16 05/19/17 06:24 Blood Pressure 101/65 05/19/17 06:24 O2 Sat by Pulse Oximetry (%) Pertinent Admission Physical Exam Findings: withdrawal sx Vital Signs Temperature 98.2 F 05/19/17 06:24 Pulse Rate 65 05/19/17 06:24 Respiratory Rate 16 05/19/17 06:24 Blood Pressure 101/65 05/19/17 06:24 O2 Sat by Pulse Oximetry (%) Laboratory Last Values WBC 4.8 K/mm3 (4.0-10.0) 05/15/17 07:40 RBC 4.86 M/mm3 (3.60-5.2) 05/15/17 07:40 Hgb 14.5 GM/dL (10.7-15.3) 05/15/17 07:40 Hct 43.2 % (32.4-45.2) 05/15/17 07:40 MCV 89.0 fl (80-96) 05/15/17 07:40 MCH 29.8 pg (25.7-33.7) 05/15/17 07:40 MCHC 33.4 g/dl (32.0-36.0) 05/15/17 07:40 RDW 13.6 % (11.6-15.6) 05/15/17 07:40 Plt Count 141 K/MM3 (134-434) D 05/15/17 07:40 MPV 9.1 fl (7.5-11.1) 05/15/17 07:40 Sodium 139 mmol/L (136-145) 05/15/17 07:40 Potassium 3.6 mmol/L (3.5-5.1) 05/15/17 07:40 Chloride 104 mmol/L (98-107) 05/15/17 07:40 Carbon Dioxide 31 mmol/L (21-32) 05/15/17 07:40 Anion Gap 4 (8-16) L 05/15/17 07:40 BUN 9 mg/dL (7-18) 05/15/17 07:40 Creatinine 0.8 mg/dL (0.55-1.02) 05/15/17 07:40 Creat Clearance w eGFR > 60 (>60) 05/15/17 07:40 Random Glucose 82 mg/dL (74-106) 05/15/17 07:40 Calcium 8.3 mg/dL (8.5-10.1) L 05/15/17 07:40 Total Bilirubin 0.6 mg/dL (0.2-1.0) 05/15/17 07:40 AST 111 U/L (15-37) H 05/15/17 07:40 ALT 130 U/L (12-78) H 05/15/17 07:40 Alkaline Phosphatase 125 U/L (45-117) H 05/15/17 07:40 Total Protein 6.6 g/dl (6.4-8.2) 05/15/17 07:40 Albumin 3.6 g/dl (3.4-5.0) 05/15/17 07:40 Urine Color Yellow 05/14/17 17:30 Urine Appearance Turbid 05/14/17 17:30 Urine pH 5.0 (5.0-8.0) 05/14/17 17:30 Ur Specific [place] 1.025 (1.001-1.035) 05/14/17 17:30 Urine Protein Negative (NEGATIVE) 05/14/17 17:30 Urine Glucose (UA) Negative (NEGATIVE) 05/14/17 17:30 Urine Ketones Negative (NEGATIVE) 05/14/17 17:30 Urine Blood Negative (NEGATIVE) 05/14/17 17:30 Urine Nitrite Negative (NEGATIVE) 05/14/17 17:30 Urine Bilirubin Negative (NEGATIVE) 05/14/17 17:30 Urine Urobilinogen Negative mg/dL (0.2-1.0) 05/14/17 17:30 Ur Leukocyte Esterase 1+ (NEGATIVE) H 05/14/17 17:30 Urine WBC (Auto) 45 /hpf (3-5) 05/14/17 17:30 Urine RBC (Auto) None /hpf (0-3) 05/14/17 17:30 Ur Epithelial Cells Rare /HPF (FEW) 05/14/17 17:30 Urine Bacteria Moderate /hpf (NONE SEEN) 05/14/17 17:30 Urine Mucus Few 05/14/17 17:30 RPR Titer Nonreactive (NONREACTIVE) 05/15/17 07:40 lab noted - Treatment Hospital Course: Detox Protocol Followed, Detoxed Safely, Responded well, Discharged Condition Good, Rehab Referral Accepted - Medication Discharge Medications: Ambulatory Orders Escitalopram Oxalate [Lexapro -] 20 mg PO DAILY #30 tablet 05/15/17 Quetiapine Fumarate [Seroquel -] 400 mg PO HS #30 tablet 05/15/17 Quetiapine Fumarate [Seroquel] 100 mg PO HS #30 tablet 05/15/17 - Diagnosis (1) Opioid dependence with withdrawal Current Visit: Yes Status: Acute (2) Bipolar II disorder Current Visit: No Status: Suspected - AMA Did Patient Leave Against Medical Advice: No
[2017-05-19 10:26] VITALS: BP 102/72; PULSE 91; TEMP 98.1
[2017-05-19] MEDS: PANTOPRAZOLE 20 MG TABLET (FP) PO SCH (11:03)
[2017-05-19] MEDS: ESCITALOPRAM OXALATE 20 MG TABLET (FP) PO SCH (11:03)
[2017-05-19] MEDS: CYCLOBENZAPRINE HCL 10 MG TABLET (FP) PO PRN (11:03)
[2017-05-19] MEDS: PRENATAL VITAMINS W/ FOLIC ACID TABLET (FP) PO SCH (11:03)
== END 2017-05-19 12:25 | disposition other institution (70) | DRG 773 ==
LOC: YASAS 10:27 → Y6N 15:14
PROVIDERS: ADMIT Internal Medicine; ATTEND Internal Medicine
PROC: HZ2ZZZZ Detoxification Services for Substance Abuse Treatment (ICD-10-PCS; principal; 2017-05-14)
DX: F11.23 Opioid dependence with withdrawal (principal); F12.20 Cannabis dependence, uncomplicated; F17.210 Nicotine dependence, cigarettes, uncomplicated; F33.2 Major depressive disorder, recurrent severe without psychotic features; F31.81 Bipolar II disorder; F19.282 Other psychoactive substance dependence with psychoactive substance-induced sleep disorder; K21.9 Gastro-esophageal reflux disease without esophagitis; M54.5 Low back pain; G89.29 Other chronic pain; E66.9 Obesity, unspecified; Z68.33 Body mass index [BMI] 33.0-33.9, adult; Z87.42 Personal history of other diseases of the female genital tract
CPT/HCPCS: 36415; 80053; 81003; 81015; 85027; 86593; 93005; 93010

== ENCOUNTER 2017-05-19 10:20 | Inpatient (IN) | payer OTHER ==
[2017-05-19] MEDS ORDERED: ACETAMINOPHEN 325 MG TABLET (FP) PO PRN (13:56)
[2017-05-19] MEDS ORDERED: MAGNESIUM HYDROX 2400MG/30ML ORAL SUSPENSION 30 ML CUP PO PRN (13:56)
[2017-05-19] MEDS ORDERED: NICOTINE POLACRILEX 4 MG GUM BUC PRN (13:56)
[2017-05-19] MEDS ORDERED: P-EPHED 60MG/TRIPROLIDI 2.5MG TABLET PO PRN (13:56)
[2017-05-19] MEDS ORDERED: MAGNESIUM CITRATE 300 ML BOTTLE PO PRN (13:56)
[2017-05-19] MEDS ORDERED: LOPERAMIDE HCL 2 MG CAPSULE PO PRN (13:56)
[2017-05-19] MEDS ORDERED: guaiFENesin/D-METHORPHAN HB 10 ML UNIT-DOSE CUPS PO PRN (13:56)
[2017-05-19] MEDS ORDERED: MAG HYDROX/AL HYDROX/SIMETH 30 ML UNIT-DOSE CUP PO PRN (13:56)
[2017-05-19] MEDS ORDERED: MENTHOL/PHENOL 1 EACH UD MM PRN (13:56)
--- NOTE | 2017-05-19 14:31 | PN ---
[facility] Progress Note Note: was called by the nurse from 3e to reconcile her medications, chart reviewed , patient was sen by while in detox and continued Seroquel 500 mg po hs and Lexapro 20 mg , orders for medications were placed.
[2017-05-19] MEDS: THIAMINE HCL 100 MG TABLET (FP) PO SCH (21:28)
[2017-05-19] MEDS: QUEtiapine FUMARATE 400 MG TABLET PO SCH (21:28)
[2017-05-19] MEDS: QUEtiapine FUMARATE 100 MG TABLET (FP) PO SCH (21:28)
[2017-05-20] MEDS: ESCITALOPRAM OXALATE 20 MG TABLET (FP) PO SCH (10:26)
[2017-05-20] MEDS: PRENATAL VITAMINS W/ FOLIC ACID TABLET (FP) PO SCH (10:26)
[2017-05-20] MEDS: PANTOPRAZOLE 40 MG TABLET (FP) PO SCH (10:26)
[2017-05-20] MEDS: NICOTINE 21 MG/24 HOURS TOPICAL PATCH TD SCH (10:27)
--- NOTE | 2017-05-20 14:35 | HP ---
Psychiatrist Admission - Data Date of interview: 05/20/17 Admission source: [address] [place] [address] Identifying data: This is the second admission to [address] [place] [address] for this 31 years old female mother of 3 years old daughter,resides with parents,unemployed,supported by child support and her daughter's father disability. Medical History: GERD,H/O UTI. Psychiatric History: Patient reports first contact with psychiatrist at 16 yo to address depressd mood,anxiety.She was placed on antidepressants on and off.She reports 4 psychiatric hospitalizations,dx with MDD.No suicidal attempts reported.Sees psychiatrist at [facility].Current medications:Lexapro 20 mg po daily adn Seroquel 500 mg po hs. Physical/Sexual Abuse/Trauma History: denies Vital Signs: Vital Signs - 24 hr 05/19/17 05/20/17 05/20/17 14:43 00:30 03:30 Temperature 98.3 F Pulse Rate 114 H Respiratory 18 17 18 Rate Blood Pressure 124/83 05/20/17 07:39 Temperature 97.9 F Pulse Rate 91 H Respiratory 18 Rate Blood Pressure 94/65 Allergies/Adverse Reactions: Allergies Allergy/AdvReac Type Severity Reaction Status Date / Time No Known Allergies Allergy Verified 05/14/17 15:14 Date of last physical exam: 05/14/17 Concur with the findings of this exam: Yes - Substance Abuse/Tx History Hx Alcohol Use: No Hx Substance Use: Yes (marijuana since 16 yo,1-2 joints daily,heroin since 29 yo ,iv/sniffing -1-2 ) Substance Use Type: Heroin, Marijuana Hx Substance Use Treatment: Yes (completed this program in 2015) Mental Status Exam - Mental Status Exam Alert and Oriented to: Time, Place, Person Cognitive Function: Grossly Intact Patient Appearance: Well Groomed Mood: Anxious, Expansive Affect: Mood Congruent, Labile Patient Behavior: Cooperative Speech Pattern: Clear Voice Loudness: Normal Thought Process: Goal Oriented Thought Disorder: Not Present Hallucinations: Denies Suicidal Ideation: Denies Homicidal Ideation: Denies Insight/Judgement: Fair Sleep: Fair Appetite: Good Muscle strength/Tone: Normal Gait/Station: Normal Psychiatric Findings - Problem List ([place] 1, 2,3) (1) Opiate dependence Current Visit: Yes Status: Chronic Qualifiers: Substance use status: uncomplicated Qualified Code(s): F11.20 - Opioid dependence, uncomplicated (2) Benzodiazepine dependence Current Visit: Yes Status: Chronic (3) MDD (major depressive disorder), recurrent episode, moderate Current Visit: Yes Status: Chronic (4) Cannabis dependence Current Visit: Yes Status: Chronic (5) Nicotine dependence Current Visit: Yes Status: Chronic Qualifiers: Nicotine product type: cigarettes Substance use status: in withdrawal Qualified Code(s): F17.213 - Nicotine dependence, cigarettes, with withdrawal - Initial Treatment Plan Initial Treatment Plan: Continue Seroquel 500 mg po hs and Lexapro 20 mg po daily. Will monitor progress.
--- NOTE | 2017-05-20 17:34 | HP ---
[facility] Rehab Assess/Revision - Admission History Admitted to Rehab from: [facility] Date of Admission to Rehab: 05/20/2017 - Vital signs Vital Signs: Vital Signs Period Temp Pulse Resp BP Sys/Pimentel Pulse Ox Last 24 Hr 97.9 F 91 17-18 94/65 - Findings Detox History & Physical reviewed: Yes Concur with findings: Yes Inpatient Rehab Admission - Initial Determination Are CD services needed?: Yes Free of communicable disease: Yes Not in need of hospitalization: Yes - Rehab Admission Criteria Lacks judgement: Yes Patient is meeting Inpatient Rehab admission criteria:: Yes
[2017-05-20] MEDS: QUEtiapine FUMARATE 100 MG TABLET (FP) PO SCH (21:29)
[2017-05-20] MEDS: THIAMINE HCL 100 MG TABLET (FP) PO SCH (21:29)
[2017-05-20] MEDS: QUEtiapine FUMARATE 400 MG TABLET PO SCH (21:29)
[2017-05-21] MEDS: ESCITALOPRAM OXALATE 20 MG TABLET (FP) PO SCH (09:49)
[2017-05-21] MEDS: NICOTINE 21 MG/24 HOURS TOPICAL PATCH TD SCH (09:50)
[2017-05-21] MEDS: PRENATAL VITAMINS W/ FOLIC ACID TABLET (FP) PO SCH (09:50)
[2017-05-21] MEDS: PANTOPRAZOLE 40 MG TABLET (FP) PO SCH (09:50)
[2017-05-21] MEDS: QUEtiapine FUMARATE 400 MG TABLET PO SCH (21:23)
[2017-05-21] MEDS: QUEtiapine FUMARATE 100 MG TABLET (FP) PO SCH (21:23)
[2017-05-21] MEDS: THIAMINE HCL 100 MG TABLET (FP) PO SCH (21:23)
[2017-05-22] MEDS: NICOTINE 21 MG/24 HOURS TOPICAL PATCH TD SCH (09:35)
[2017-05-22] MEDS: PANTOPRAZOLE 40 MG TABLET (FP) PO SCH (09:36)
[2017-05-22] MEDS: ESCITALOPRAM OXALATE 20 MG TABLET (FP) PO SCH (09:36)
[2017-05-22] MEDS: PRENATAL VITAMINS W/ FOLIC ACID TABLET (FP) PO SCH (09:36)
[2017-05-22] MEDS: THIAMINE HCL 100 MG TABLET (FP) PO SCH (21:30)
[2017-05-22] MEDS: QUEtiapine FUMARATE 400 MG TABLET PO SCH (21:30)
[2017-05-22] MEDS: QUEtiapine FUMARATE 100 MG TABLET (FP) PO SCH (21:30)
[2017-05-23] MEDS: NICOTINE 21 MG/24 HOURS TOPICAL PATCH TD SCH (10:13)
[2017-05-23] MEDS: PANTOPRAZOLE 40 MG TABLET (FP) PO SCH (10:13)
[2017-05-23] MEDS: ESCITALOPRAM OXALATE 20 MG TABLET (FP) PO SCH (10:13)
[2017-05-23] MEDS: PRENATAL VITAMINS W/ FOLIC ACID TABLET (FP) PO SCH (10:13)
[2017-05-23] MEDS: hydrOXYzine PAMOATE 50 MG CAPSULE (FP) PO PRN (10:14)
[2017-05-23] MEDS: THIAMINE HCL 100 MG TABLET (FP) PO SCH (21:30)
[2017-05-23] MEDS: QUEtiapine FUMARATE 400 MG TABLET PO SCH (21:31)
[2017-05-23] MEDS: QUEtiapine FUMARATE 100 MG TABLET (FP) PO SCH (21:31)
[2017-05-24] MEDS: NICOTINE 21 MG/24 HOURS TOPICAL PATCH TD SCH (10:02)
[2017-05-24] MEDS: PRENATAL VITAMINS W/ FOLIC ACID TABLET (FP) PO SCH (10:03)
[2017-05-24] MEDS: ESCITALOPRAM OXALATE 20 MG TABLET (FP) PO SCH (10:03)
[2017-05-24] MEDS: PANTOPRAZOLE 40 MG TABLET (FP) PO SCH (10:03)
[2017-05-24] MEDS: IBUPROFEN 400 MG TABLET (FP) PO PRN (10:04)
[2017-05-24] MEDS: QUEtiapine FUMARATE 100 MG TABLET (FP) PO SCH (21:40)
[2017-05-24] MEDS: THIAMINE HCL 100 MG TABLET (FP) PO SCH (21:40)
[2017-05-24] MEDS: QUEtiapine FUMARATE 400 MG TABLET PO SCH (21:41)
[2017-05-25] MEDS: PRENATAL VITAMINS W/ FOLIC ACID TABLET (FP) PO SCH (10:06)
[2017-05-25] MEDS: ESCITALOPRAM OXALATE 20 MG TABLET (FP) PO SCH (10:06)
[2017-05-25] MEDS: NICOTINE 21 MG/24 HOURS TOPICAL PATCH TD SCH (10:06)
[2017-05-25] MEDS: PANTOPRAZOLE 40 MG TABLET (FP) PO SCH (10:07)
[2017-05-25] MEDS: IBUPROFEN 400 MG TABLET (FP) PO PRN (16:50)
[2017-05-25] MEDS: THIAMINE HCL 100 MG TABLET (FP) PO SCH (21:29)
[2017-05-25] MEDS: QUEtiapine FUMARATE 100 MG TABLET (FP) PO SCH (21:29)
[2017-05-25] MEDS: QUEtiapine FUMARATE 400 MG TABLET PO SCH (21:29)
[2017-05-26] MEDS: ESCITALOPRAM OXALATE 20 MG TABLET (FP) PO SCH (09:54)
[2017-05-26] MEDS: PANTOPRAZOLE 40 MG TABLET (FP) PO SCH (09:54)
[2017-05-26] MEDS: NICOTINE 21 MG/24 HOURS TOPICAL PATCH TD SCH (09:54)
[2017-05-26] MEDS: PRENATAL VITAMINS W/ FOLIC ACID TABLET (FP) PO SCH (09:55)
[2017-05-26] MEDS: hydrOXYzine PAMOATE 50 MG CAPSULE (FP) PO PRN ×2 (15:36→21:26)
[2017-05-26] MEDS: QUEtiapine FUMARATE 400 MG TABLET PO SCH (21:25)
[2017-05-26] MEDS: QUEtiapine FUMARATE 100 MG TABLET (FP) PO SCH (21:25)
[2017-05-26] MEDS: THIAMINE HCL 100 MG TABLET (FP) PO SCH (21:25)
[2017-05-27] MEDS: NICOTINE 21 MG/24 HOURS TOPICAL PATCH TD SCH (10:32)
[2017-05-27] MEDS: PRENATAL VITAMINS W/ FOLIC ACID TABLET (FP) PO SCH (10:32)
[2017-05-27] MEDS: ESCITALOPRAM OXALATE 20 MG TABLET (FP) PO SCH (10:32)
[2017-05-27] MEDS: PANTOPRAZOLE 40 MG TABLET (FP) PO SCH (10:32)
[2017-05-27] MEDS: QUEtiapine FUMARATE 100 MG TABLET (FP) PO SCH (21:25)
[2017-05-27] MEDS: THIAMINE HCL 100 MG TABLET (FP) PO SCH (21:25)
[2017-05-27] MEDS: QUEtiapine FUMARATE 400 MG TABLET PO SCH (21:26)
[2017-05-28] MEDS: PANTOPRAZOLE 40 MG TABLET (FP) PO SCH (10:02)
[2017-05-28] MEDS: PRENATAL VITAMINS W/ FOLIC ACID TABLET (FP) PO SCH (10:02)
[2017-05-28] MEDS: ESCITALOPRAM OXALATE 20 MG TABLET (FP) PO SCH (10:02)
[2017-05-28] MEDS: NICOTINE 21 MG/24 HOURS TOPICAL PATCH TD SCH (10:03)
[2017-05-28] MEDS: QUEtiapine FUMARATE 100 MG TABLET (FP) PO SCH (21:25)
[2017-05-28] MEDS: THIAMINE HCL 100 MG TABLET (FP) PO SCH (21:25)
[2017-05-28] MEDS: IBUPROFEN 400 MG TABLET (FP) PO PRN (21:26)
[2017-05-28] MEDS: QUEtiapine FUMARATE 400 MG TABLET PO SCH (21:27)
[2017-05-29] MEDS: PANTOPRAZOLE 40 MG TABLET (FP) PO SCH (10:08)
[2017-05-29] MEDS: ESCITALOPRAM OXALATE 20 MG TABLET (FP) PO SCH (10:09)
[2017-05-29] MEDS: PRENATAL VITAMINS W/ FOLIC ACID TABLET (FP) PO SCH (10:09)
[2017-05-29] MEDS: NICOTINE 21 MG/24 HOURS TOPICAL PATCH TD SCH (10:09)
[2017-05-29] MEDS: hydrOXYzine PAMOATE 50 MG CAPSULE (FP) PO PRN (14:56)
[2017-05-29] MEDS: IBUPROFEN 400 MG TABLET (FP) PO PRN (19:01)
[2017-05-29] MEDS: QUEtiapine FUMARATE 100 MG TABLET (FP) PO SCH (20:01)
[2017-05-29] MEDS: QUEtiapine FUMARATE 400 MG TABLET PO SCH (20:01)
[2017-05-29] MEDS: THIAMINE HCL 100 MG TABLET (FP) PO SCH (21:33)
[2017-05-30] MEDS: PRENATAL VITAMINS W/ FOLIC ACID TABLET (FP) PO SCH (10:01)
[2017-05-30] MEDS: NICOTINE 21 MG/24 HOURS TOPICAL PATCH TD SCH (10:01)
[2017-05-30] MEDS: ESCITALOPRAM OXALATE 20 MG TABLET (FP) PO SCH (10:01)
[2017-05-30] MEDS: PANTOPRAZOLE 40 MG TABLET (FP) PO SCH (10:01)
[2017-05-30] MEDS: hydrOXYzine PAMOATE 50 MG CAPSULE (FP) PO PRN (20:08)
[2017-05-30] MEDS: QUEtiapine FUMARATE 100 MG TABLET (FP) PO SCH (20:09)
[2017-05-30] MEDS: QUEtiapine FUMARATE 400 MG TABLET PO SCH (20:09)
[2017-05-30] MEDS: THIAMINE HCL 100 MG TABLET (FP) PO SCH (21:33)
[2017-05-31] MEDS: ESCITALOPRAM OXALATE 20 MG TABLET (FP) PO SCH (10:01)
[2017-05-31] MEDS: PRENATAL VITAMINS W/ FOLIC ACID TABLET (FP) PO SCH (10:01)
[2017-05-31] MEDS: PANTOPRAZOLE 40 MG TABLET (FP) PO SCH (10:01)
[2017-05-31] MEDS: NICOTINE 21 MG/24 HOURS TOPICAL PATCH TD SCH (10:01)
[2017-05-31] MEDS: hydrOXYzine PAMOATE 50 MG CAPSULE (FP) PO PRN (15:08)
[2017-05-31] MEDS: QUEtiapine FUMARATE 400 MG TABLET PO SCH (20:10)
[2017-05-31] MEDS: QUEtiapine FUMARATE 100 MG TABLET (FP) PO SCH (20:10)
[2017-05-31] MEDS: THIAMINE HCL 100 MG TABLET (FP) PO SCH (21:56)
[2017-06-01] MEDS: ESCITALOPRAM OXALATE 20 MG TABLET (FP) PO SCH (10:02)
[2017-06-01] MEDS: PANTOPRAZOLE 40 MG TABLET (FP) PO SCH (10:02)
[2017-06-01] MEDS: PRENATAL VITAMINS W/ FOLIC ACID TABLET (FP) PO SCH (10:02)
[2017-06-01] MEDS: NICOTINE 21 MG/24 HOURS TOPICAL PATCH TD SCH (10:03)
[2017-06-01] MEDS: QUEtiapine FUMARATE 100 MG TABLET (FP) PO SCH (20:56)
[2017-06-01] MEDS: QUEtiapine FUMARATE 400 MG TABLET PO SCH (20:56)
[2017-06-01] MEDS: THIAMINE HCL 100 MG TABLET (FP) PO SCH (21:44)
[2017-06-02 07:13] VITALS: BP 112/79; PULSE 76; TEMP 98
[2017-06-02] MEDS: PANTOPRAZOLE 40 MG TABLET (FP) PO SCH (09:03)
[2017-06-02] MEDS: NICOTINE 21 MG/24 HOURS TOPICAL PATCH TD SCH (09:03)
[2017-06-02] MEDS: ESCITALOPRAM OXALATE 20 MG TABLET (FP) PO SCH (09:03)
[2017-06-02] MEDS: PRENATAL VITAMINS W/ FOLIC ACID TABLET (FP) PO SCH (09:03)
--- NOTE | 2017-06-02 09:15 | PN ---
[facility] Progress Note Note: Patient completed this program today(early discharge).She has met her treatment goals partially.Patient will continue to address her issues on outpatient basis.She reports current medications help her to cope with anxiety, depression.scripts for 30 days provided.Patient stable for discharge.
== END 2017-06-02 09:14 | disposition home or self-care (01) | DRG 772 ==
LOC: YASAS 10:20 → Y3E 10:21
PROVIDERS: ADMIT Psychiatry & Neurology Psychiatry; ATTEND Psychiatry & Neurology Psychiatry
PROC: HZ42ZZZ Group Counseling for Substance Abuse Treatment, Cognitive-Behavioral (ICD-10-PCS; principal; 2017-05-19)
DX: F11.20 Opioid dependence, uncomplicated (principal); F13.230 Sedative, hypnotic or anxiolytic dependence with withdrawal, uncomplicated; F12.20 Cannabis dependence, uncomplicated; F17.213 Nicotine dependence, cigarettes, with withdrawal; F33.1 Major depressive disorder, recurrent, moderate
CPT/HCPCS: 36415; 87389

== ENCOUNTER 2018-10-07 09:03 | Inpatient (IN) | payer OTHER ==
[2018-10-07 10:31] VITALS: BMI 33.0
--- NOTE | 2018-10-07 11:22 | HP ---
"COWS - Scale Resting Pulse: 1= [place] 81-100 Sweatin= Chills/Flushing Restless Observation: 1= Difficult to Sit Still Pupil Size: 0= Normal to Room Light Bone or Joint Aches: 1= Mild Discomfort Runny Nose/ Eye Tearin= Runny Nose/Eyes GI Upset > 30mins: 1= Stomach Cramp Tremor Observation: 2= Slight Tremor Visible Yawning Observation: 1= 1-2x During Session Anxiety or Irritability: 1=Feels Anxious/Irritable Goose Flesh Skin: 0=Smooth Skin COWS Score: 11 CIWA Score - Admission Criteria OASAS Guidelines: Admission for Medically Managed Detox: Requires at least one of the followin. CIWA greater than 12 2. Seizures within the past 24 hours 3. Delirium tremens within the past 24 hours 4. Hallucinations within the past 24 hours 5. Acute intervention needed for co occurring medical disorder 6. Acute intervention needed for co occurring psychiatric disorder 7. Severe withdrawal that cannot be handled at a lower level of care (continued vomiting, continued diarrhea, abnormal vital signs) requiring intravenous medication and/or fluids 8. Admission ROS BHS - HPI Chief Complaint: I'm so angry at myself, I made a terrible mistake and started to use again - I got kicked out of my house and I have so much going on - I get so sick when I withdraw it's the most horrible feeling in the world Allergies/Adverse Reactions: Allergies Allergy/AdvReac Type Severity Reaction Status Date / Time No Known Allergies Allergy Verified 10/07/18 10:19 History of Present Illness: 33 yo woman here for detox from opiates - this is one of multiple admissions for treatment. She was in detox here 05/14/17 - then went to rehab and upon discharge 06/30/17 went to [facility] until August 2017. In October 2017, she then went into [facility] outpatient program - was given Vivitrol injections several months ( thinks Dec/Jan/Feb 2018) but felt sick/exhausted each time so in May 2018 she was started on subutex. She did well for a while and got a job several weeks ago, had money and began to use again - was then told she had to leave her mother's home, where she was living. Her mother has custody of her four year old daughter. Patient with a history of overdoses but no seizures. She is on clonazepam and states she does not abuse this. [facility]: This report was requested by: Deloris Wilson | Reference #: [id number] Others' Prescriptions Patient Name: Kalani Freed Date: 1985 Address: [address] [place] [address] Sex: Female Rx Written Rx Dispensed Drug Quantity Days Supply Prescriber Name 09/21/2018 09/21/2018 clonazepam 1 mg tablet 60 30 Harshad Martinez MD 09/07/2018 09/07/2018 buprenorphine 8 mg tablet sl 90 30 HarHarshad sanchez MD 08/21/2018 08/23/2018 clonazepam 1 mg tablet 60 30 Harshad Martinez MD 08/08/2018 08/08/2018 buprenorphine 8 mg tablet sl 90 30 Harshad Martinez MD 07/25/2018 07/25/2018 clonazepam 1 mg tablet 60 30 Harshad Martinez MD 07/12/2018 07/13/2018 buprenorphine 8 mg tablet sl 60 30 WhikehartHarris MD 07/05/2018 07/05/2018 clonazepam 0.5 mg tablet 60 30 WhikehartHarris MD 06/14/2018 06/16/2018 buprenorphine 8 mg tablet sl 60 30 WhikehartHarris MD 06/02/2018 06/02/2018 buprenorphine 8 mg tablet sl 28 14 Harshad Martinez MD 05/08/2018 05/24/2018 clonazepam 1 mg tablet 60 30 WhikehartHarris MD 05/24/2018 05/24/2018 buprenorphine 2 mg tablet sl 42 14 Harshad Martinez MD 04/14/2018 04/14/2018 clonazepam 1 mg tablet 60 30 WhikehartHarris MD 03/06/2018 03/07/2018 clonazepam 1 mg tablet 60 30 WhikehartHarris MD 02/22/2018 02/23/2018 clonazepam 1 mg tablet 30 15 WhikehartHarris MD 01/23/2018 01/25/2018 clonazepam 1 mg tablet 60 30 WhikehartHarris MD 12/01/2017 12/13/2017 clonazepam 1 mg tablet 28 14 Marianna Peralta MD Patient Name: Kalani Freed Date: 1985 Address: [address] [place], [place] [address] [address] Sex: Female Rx Written Rx Dispensed Drug Quantity Days Supply Prescriber Name 12/17/2017 12/24/2017 clonazepam 1 mg tablet 60 30 Macrina Roca MD 11/11/2017 11/11/2017 clonazepam 1 mg tablet 60 30 Macrina Roca MD 10/13/2017 10/13/2017 clonazepam 1 mg tablet 60 30 Macrina Roca MD Exam Limitations: Clinical Condition - Ebola screening Have you traveled outside of the country in the last 21 days: No (N) Have you had contact with anyone from an Ebola affected area: No Do you have a fever: No - Review of Systems Constitutional: Loss of Appetite, Malaise, Night Sweats, Changes in sleep EENT: reports: Blurred Vision, Nose Congestion Respiratory: reports: No Symptoms reported Cardiac: reports: No Symptoms Reported GI: reports: Indigestion, Abdominal cramping : reports: Dysuria Musculoskeletal: reports: Back Pain, Muscle Pain Integumentary: reports: No Symptoms Reported Neuro: reports: Headache, Tremors, Weakness Endocrine: reports: No Symptoms Reported Hematology: reports: No Symptoms Reported Psychiatric: reports: Judgement Intact, Mood/Affect Appropiate, Anxious Other Systems: Reviewed and Negative Patient History - Patient Medical History Hx Anemia: No Hx Asthma: No Hx Chronic Obstructive Pulmonary Disease (COPD): No Hx Cancer: No Hx Cardiac Disorders: No Hx Congestive Heart Failure: No Hx Hypertension: No Hx Hypercholesterolemia: Yes (on meds) Hx Pacemaker: No HX Cerebrovascular Accident: No Hx Seizures: No Hx Dementia: No Hx Diabetes: No Hx Gastrointestinal Disorders: Yes (gerd - uses OTC) Hx Liver Disease: Yes (hx elevated LFTs) Hx Genitourinary Disorders: Yes (chronic intermittent cystitis) Hx Sexually Transmitted Disorders: Yes (hx HPV - treated and now paps are normal ) Hx Renal Disease (ESRD): No Hx Thyroid Disease: No Hx Human Immunodeficiency Virus (HIV): No (negative last 06/25) Hx Hepatitis C: No Hx Depression: Yes (with anxiety - on Rx klonopin 1mg bid;hospitalized 01/2017 ) Hx Suicide Attempt: No Hx Bipolar Disorder: No Hx Schizophrenia: No - Patient Surgical History Past Surgical History: Yes Hx Neurologic Surgery: No Hx Cataract Extraction: No Hx Cardiac Surgery: No Hx Lung Surgery: No Hx Breast Surgery: No Hx Breast Biopsy: No Hx Abdominal Surgery: No Hx Appendectomy: No Hx Cholecystectomy: No Hx Genitourinary Surgery: Yes (COLPOSCOPY/LEEP 2005) Hx Section: No Hx Orthopedic Surgery: No Hx Hysterectomy: No Other Surgical History: FRACTURED RT. ELBOW AND RT. 2 FINGER ON 03/11/2015 SEC. TO FALL Anesthesia Reaction: No - PPD History Previous Implant?: Yes Documented Results: Negative w/proof Implanted On Prior R Admission?: Yes Date: 12/19/15 Results: 0 MM PPD to be Administered?: Yes - Reproductive History Last Menstrual Period: 05/10/17 - Smoking Cessation Smoking history: Current every day smoker Have you smoked in the past 12 months: Yes Aproximately how many cigarettes per day: 10 Cigars Per Day: 0 Hx Chewing Tobacco Use: No Initiated information on smoking cessation: Yes 'Breaking Loose' booklet given: 10/07/18 (give on floor) - Substance & Tx. History Hx Alcohol Use: No Hx Substance Use: Yes Substance Use Type: Heroin, Opiates Hx Substance Use Treatment: Yes (detox, rehab) - Substances abused Heroin Substance route: Injection (does both injection and snorts 'it depends') Frequency: 3-6 times per week Amount used: 6 bags/day Age of first use: 29 Date of last use: 10/07/18 Oxycontin Other (specify): percocet Substance route: Oral Frequency: 3-6 times per week Amount used: three percocet 10/325 Age of first use: 24 Date of last use: 10/05/18 Family Disease History - Family Disease History Family Disease History: Heart Disease: Father (gout, marijuana, alcohol, cocaine ), Other: Father, Mother (depression, anxiety), Brother (one - living - healthy) , Sister (one - living - healthy), Daughter (one -age four - healthy) Admission Physical Exam S - Vital Signs Vital Signs: Vital Signs - 24 hr 10/07/18 10:25 Temperature 98.4 F Pulse Rate 88 Respiratory 18 Rate Blood Pressure 118/84 - Physical General Appearance: Yes: Nourished, Appropriately Dressed, Moderate Distress, Tremorous, Irritable, Anxious, Other (teary) HEENTM: Yes: EOMI, Hearing grossly Normal, Normocephalic, Normal Voice, Pharynx Normal Respiratory: Yes: Normal Breath Sounds, No Respiratory Distress Neck: Yes: No masses,lesions,Nodules, Supple Breast: Yes: Breast Exam Deferred Cardiology: Yes: Regular Rhythm, Regular Rate Abdominal: Yes: Flat, Soft Genitourinary: Yes: Frequency Back: Yes: Normal Inspection Musculoskeletal: Yes: full range of Motion, Gait Steady, Back pain, Muscle Pain Extremities: Yes: Normal Inspection, Normal Range of Motion Neurological: Yes: Fully Oriented, Alert, Motor Strength 5/5, Normal Mood/Affect , Normal Response Integumentary: Yes: Normal Color, Warm, Track [place] (injections site left dorsal surface of hand - mild echymosis and tenderness but no abscess noted) Lymphatic: Yes: Within Normal Limits - Diagnostic (1) Opioid dependence with withdrawal Current Visit: Yes Status: Chronic (2) Hypercholesteremia Current Visit: Yes Status: Chronic Comment: recently started on meds (3) GERD (gastroesophageal reflux disease) Current Visit: Yes Status: Chronic Qualifiers: Esophagitis presence: esophagitis presence not specified Qualified Code(s) : K21.9 - Gastro-esophageal reflux disease without esophagitis (4) Nicotine dependence Current Visit: Yes Status: Chronic Qualifiers: Nicotine product type: cigarettes Substance use status: in withdrawal Qualified Code(s): F17.213 - Nicotine dependence, cigarettes, with withdrawal Comment: declines replacement therapy at this time Cleared for Admission [facility] - Detox or Rehab [facility] Level of Care: Medically Managed Detox Regimen/Protocol: Methadone Inpatient Rehab Admission - Rehab Decision to Admit Inpatient rehab admission?: No"
[2018-10-07] MEDS ORDERED: MAG HYDROX/AL HYDROX/SIMETH 30 ML UNIT-DOSE CUP PO PRN (11:52)
[2018-10-07] MEDS ORDERED: ACETAMINOPHEN 325 MG TABLET (FP) PO PRN (11:52)
[2018-10-07] MEDS ORDERED: MENTHOL/PHENOL 1 EACH UD MM PRN (11:52)
[2018-10-07] MEDS ORDERED: MAGNESIUM HYDROX 2400MG/30ML ORAL SUSPENSION 30 ML CUP PO PRN (11:52)
[2018-10-07] MEDS ORDERED: IBUPROFEN 400 MG TABLET (FP) PO PRN (11:52)
[2018-10-07] MEDS ORDERED: BISMUTH SUBSALICYLATE 524 MG/30 ML UD PO PRN (11:52)
[2018-10-07] MEDS ORDERED: MAGNESIUM CITRATE 300 ML BOTTLE PO PRN (11:52)
[2018-10-07] MEDS ORDERED: MELATONIN 5 MG TABLETS PO PRN (11:52)
[2018-10-07] MEDS ORDERED: cloNIDine HCL 0.1 MG TABLET PO PRN (11:52)
[2018-10-07] MEDS ORDERED: METHADONE HCL 10 MG TABLET (FOR DETOX USE ONLY) PO ONE ×2 (12:15→23:00)
[2018-10-07] MEDS: CYCLOBENZAPRINE HCL 10 MG TABLET (FP) PO PRN ×2 (12:59→22:52)
[2018-10-07] MEDS: clonazePAM 0.5 MG TABLET PO PRN (18:08)
[2018-10-07] MEDS: THIAMINE HCL 100 MG TABLET (FP) PO SCH (22:52)
[2018-10-07] MEDS: ATORVASTATIN CA 10 MG TABLET (FP) PO SCH (23:26)
[2018-10-08 09:31] LABS: HEMATOCRIT 39.4 % (32.4-45.2); HEMOGLOBIN 13.6 GM/dL (10.7-15.3); MCH 30.3 pg (25.7-33.7); MCHC 34.6 g/dl (32.0-36.0); MEAN CELL VOLUME 87.7 fl (80-96); MEAN PLT VOLUME 8.8 fl (7.5-11.1); RBC 4.49 M/mm3 (3.60-5.2); RDW 13.2 % (11.6-15.6); WHITE BLOOD COUNT 4.8 K/mm3 (4.0-10.0)
[2018-10-08 09:38] LABS: ALBUMIN 3.3 g/dl (3.4-5.0); BILIRUBIN,TOTAL 0.4 mg/dL (0.2-1); CALCIUM 8.7 mg/dL (8.5-10.1); CREATININE 0.8 mg/dL (0.55-1.3); POTASSIUM 3.9 mmol/L (3.5-5.1); TOT PROT 6.1 g/dl (6.4-8.2)
[2018-10-08] MEDS: PRENATAL VITAMINS W/ FOLIC ACID TABLET (FP) PO SCH (09:53)
[2018-10-08] MEDS: clonazePAM 0.5 MG TABLET PO PRN ×3 (09:53→22:37)
[2018-10-08] MEDS: CYCLOBENZAPRINE HCL 10 MG TABLET (FP) PO PRN ×2 (09:55→19:34)
[2018-10-08 09:59] LABS: PLATELET COUNT 183 K/MM3 (134-434)
[2018-10-08] MEDS ORDERED: METHADONE HCL 10 MG TABLET (FOR DETOX USE ONLY) PO ONE (10:00)
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
--- NOTE | 2018-10-08 15:19 | PN ---
S CIWA - CIWA Score Nausea/Vomitin-No Nausea/No Vomiting Muscle Tremors: 4-Moderate,w/Arms Extend Anxiety: 4-Mod. Anxious/Guarded Agitation: 4-Moderately Restless Paroxysmal Sweats: 1-Minimal Palms Moist Orientation: 0-Oriented Tacttile Disturbances: 3-Moderate Itch/Numb/Burn Auditory Disturbances: 0-None Visual Disturbances: 0-None Headache: 0-None Present CIWA-Ar Total Score: 16 BHS COWS - Scale Resting Pulse: 0= [place] 80 or Below Sweatin= Chills/Flushing Restless Observation: 3= Extraneous Movement Pupil Size: 0= Normal to Room Light Bone or Joint Aches: 1= Mild Discomfort Runny Nose/ Eye Tearin= None GI Upset > 30mins: 0= None Tremor Observation of Outstretched Hands: 1= Tremor [place], Not Seen Yawning Observation: 1= 1-2x During Session Anxiety or Irritability: 2=Irritable/Anxious Goose Flesh Skin: 0=Smooth Skin COWS Score: 9 S Progress Note (SOAP) Subjective: ANXIETY,IRRITABILITY, INTERMITTENT SLEEP. REQUESTING PSYCH CONSULT TODAY FOR SEROQUEL. Objective: 10/08/18 15:18 Vital Signs 10/08/18 10/08/18 09:40 13:35 Temperature 98.3 F 99 F Pulse Rate 59 L 73 Respiratory 18 18 Rate Blood Pressure 96/64 129/88 Laboratory Tests 10/08/18 10/08/18 10/08/18 07:30 07:30 07:30 WBC 4.8 RBC 4.49 Hgb 13.6 Hct 39.4 MCV 87.7 MCH 30.3 MCHC 34.6 RDW 13.2 Plt Count 183 D MPV 8.8 Sodium 142 Potassium 3.9 Chloride 108 H Carbon Dioxide 30 Anion Gap 4 L BUN 11.0 Creatinine 0.8 Est GFR (CKD-EPI)AfAm 111.48 Est GFR (CKD-EPI)NonAf 96.19 Random Glucose 88 Calcium 8.7 Total Bilirubin 0.4 AST 29 ALT 41 Alkaline Phosphatase 121 H Total Protein 6.1 L Albumin 3.3 L RPR Titer Nonreactive Assessment: 10/08/18 15:18 WITHDRAWAL SX Plan: CONTINUE DETOX PT TO FOLLOW UP WITH PSYCH CONSULT TODAY
[2018-10-08] MEDS ORDERED: QUEtiapine FUMARATE 200 MG TABLET ONE (21:59)
[2018-10-08] MEDS ORDERED: QUEtiapine FUMARATE 100 MG TABLET (FP) ONE (21:59)
[2018-10-08] MEDS ORDERED: QUEtiapine FUMARATE 400 MG TABLET PO SCH (22:00)
[2018-10-08] MEDS: THIAMINE HCL 100 MG TABLET (FP) PO SCH (22:36)
[2018-10-08] MEDS: ATORVASTATIN CA 10 MG TABLET (FP) PO SCH (22:36)
[2018-10-08] MEDS: QUETIAPINE FUMARATE 400 MG, QUETIAPINE FUMARATE 100 MG PO SCH (22:36)
[2018-10-09] MEDS ORDERED: METHADONE HCL 10 MG TABLET (FOR DETOX USE ONLY) PO ONE (10:00)
[2018-10-09] MEDS: PRENATAL VITAMINS W/ FOLIC ACID TABLET (FP) PO SCH (10:34)
[2018-10-09] MEDS: clonazePAM 0.5 MG TABLET PO PRN ×2 (10:35→16:42)
[2018-10-09] MEDS: CYCLOBENZAPRINE HCL 10 MG TABLET (FP) PO PRN ×2 (10:35→22:19)
--- NOTE | 2018-10-09 16:59 | PN ---
BHS COWS - Scale Resting Pulse: 1= [place] 81-100 Sweatin= Chills/Flushing Restless Observation: 1= Difficult to Sit Still Pupil Size: 0= Normal to Room Light Bone or Joint Aches: 0= None Runny Nose/ Eye Tearin= None GI Upset > 30mins: 0= None Tremor Observation of Outstretched Hands: 0= None Yawning Observation: 1= 1-2x During Session Anxiety or Irritability: 0= None Goose Flesh Skin: 0=Smooth Skin COWS Score: 4 S Progress Note (SOAP) Subjective: Patient denies current Withdrawal / Detox symptoms and reports that she feels well overall at this time. Objective: PATIENT A & O X 3, OBSERVED AMBULATING ON UNIT UNASSISTED. IN NO ACUTE DISTRESS. 10/09/18 16:55 Vital Signs Temperature 98.5 F 10/09/18 13:34 Pulse Rate 88 10/09/18 13:34 Respiratory Rate 18 10/09/18 13:34 Blood Pressure 113/82 10/09/18 13:34 O2 Sat by Pulse Oximetry (%) Laboratory Tests 10/07/18 10/08/18 10/08/18 11:23 07:30 07:30 WBC 4.8 RBC 4.49 Hgb 13.6 Hct 39.4 MCV 87.7 MCH 30.3 MCHC 34.6 RDW 13.2 Plt Count 183 D MPV 8.8 Sodium 142 Potassium 3.9 Chloride 108 H Carbon Dioxide 30 Anion Gap 4 L BUN 11.0 Creatinine 0.8 Est GFR (CKD-EPI)AfAm 111.48 Est GFR (CKD-EPI)NonAf 96.19 Random Glucose 88 Calcium 8.7 Total Bilirubin 0.4 AST 29 ALT 41 Alkaline Phosphatase 121 H Total Protein 6.1 L Albumin 3.3 L POC Urine HCG, Qual Negative RPR Titer 10/08/18 07:30 WBC RBC Hgb Hct MCV MCH MCHC RDW Plt Count MPV Sodium Potassium Chloride Carbon Dioxide Anion Gap BUN Creatinine Est GFR (CKD-EPI)AfAm Est GFR (CKD-EPI)NonAf Random Glucose Calcium Total Bilirubin AST ALT Alkaline Phosphatase Total Protein Albumin POC Urine HCG, Qual RPR Titer Nonreactive LABS NOTED. Assessment: 10/09/18 16:55 WITHDRAWAL SYMPTOMS. Plan: CONTINUE DETOX. SINCE PATIENT REPORTS THAT CURRENT WITHDRAWAL / DETOX SYMPTOMS ARE MINIMAL AND THAT SHE IS TOLERATING THEM WELL, AT HER REQUEST, CURRENT DETOX MEDICATION REGIMEN MODIFIED SO THAT SHE MAY BE DISCHARGED TOMORROW, 10/10/2018, AT WHICH TIME SHE WILL LIKELY GO ON TO [facility] ([place], [place]) FOR AFTERCARE.
[2018-10-09] MEDS ORDERED: QUEtiapine FUMARATE 100 MG TABLET (FP) ONE (19:21)
[2018-10-09] MEDS ORDERED: QUEtiapine FUMARATE 200 MG TABLET ONE (19:22)
[2018-10-09] MEDS: QUETIAPINE FUMARATE 400 MG, QUETIAPINE FUMARATE 100 MG PO SCH (22:19)
[2018-10-09] MEDS: THIAMINE HCL 100 MG TABLET (FP) PO SCH (22:19)
[2018-10-09] MEDS: ATORVASTATIN CA 10 MG TABLET (FP) PO SCH (22:20)
[2018-10-10] MEDS: CYCLOBENZAPRINE HCL 10 MG TABLET (FP) PO PRN (05:58)
[2018-10-10] MEDS: clonazePAM 0.5 MG TABLET PO PRN (05:58)
[2018-10-10] MEDS ORDERED: METHADONE HCL 5 MG TABLET (FOR DETOX USE ONLY) PO ONE (06:00)
[2018-10-10 06:15] VITALS: BP 95/68; PULSE 60; TEMP 97.5
[2018-10-10] MEDS ORDERED: METHADONE HCL 10 MG TABLET (FOR DETOX USE ONLY) PO ONE (10:00)
--- NOTE | 2018-10-10 14:30 | DS ---
[facility] Detox Discharge Summary Admission Date: 10/07/18 Discharge Date: 10/10/18 - History Present History: Opioid Dependence, Sedative Dependence Pertinent Past History: pt was admitted for opioid detox- completed. Pt will follow up for renewal of suboxone and other medications as needed - Physical Exam Results Vital Signs: Vital Signs Temperature 97.5 F L 10/10/18 06:14 Pulse Rate 60 10/10/18 06:14 Respiratory Rate 16 10/10/18 06:14 Blood Pressure 95/68 10/10/18 06:14 O2 Sat by Pulse Oximetry (%) - Treatment Hospital Course: Detox Protocol Followed, Detoxed Safely, Responded well, Discharged Condition Good - Medication Discharge Medications: Ambulatory Orders Quetiapine Fumarate [Seroquel -] 400 mg PO HS #30 tablet 05/15/17 Buprenorphine HCl [Subutex -] 8 mg SL TID 10/07/18 Clonazepam [Klonopin] 1 mg PO BID 10/07/18 Lovastatin 10 mg PO HS 10/07/18
[2018-10-11] MEDS ORDERED: METHADONE HCL 5 MG TABLET (FOR DETOX USE ONLY) PO ONE (06:00)
== END 2018-10-10 09:05 | disposition home or self-care (01) | DRG 773 ==
LOC: YASAS 09:03 → Y3N 12:17
PROVIDERS: ADMIT Surgery; ATTEND Surgery
PROC: HZ2ZZZZ Detoxification Services for Substance Abuse Treatment (ICD-10-PCS; principal; 2018-10-07)
DX: F11.23 Opioid dependence with withdrawal (principal); F13.20 Sedative, hypnotic or anxiolytic dependence, uncomplicated; F19.282 Other psychoactive substance dependence with psychoactive substance-induced sleep disorder; F19.24 Other psychoactive substance dependence with psychoactive substance-induced mood disorder; F33.1 Major depressive disorder, recurrent, moderate; F41.9 Anxiety disorder, unspecified; F31.81 Bipolar II disorder; K21.9 Gastro-esophageal reflux disease without esophagitis; E78.00 Pure hypercholesterolemia, unspecified; Z86.19 Personal history of other infectious and parasitic diseases; Z87.440 Personal history of urinary (tract) infections
CPT/HCPCS: 36415; 80053; 81025; 85027; 86593; J0735